=== PATIENT | male | born 1960 | race Caucasian/White ===

== ENCOUNTER 2020-07-27 11:13 | Inpatient (IN) ==
[2020-07-27] MEDS ORDERED: PANTOprazole 80 MG in DEXTROSE 5% 100 ML IV ONE (11:58)
[2020-07-27] MEDS ORDERED: PANTOPRAZOLE BOLUS/DRIP 1 EA IV STA (11:58)
[2020-07-27] MEDS ORDERED: PANTOprazole 40 MG in DEXTROSE 5% 100 ML IV SCH (12:13)
[2020-07-27] MEDS ORDERED: ONDANSETRON INJ 2 MG/ML 2 ML VIAL IV STA (12:26)
[2020-07-27 12:37] LABS: Basophils # (auto) 0.01 K/uL (0-0.2); Basophils % (auto) 0.1 %; Eosinophils # (auto) 0.02 K/uL (0-0.5); Eosinophils % (auto) 0.2 %; Hematocrit (blood only) 42.3 % (42-52); Hemoglobin 14.1 g/dL (14.0-18.0); Immature Granulocytes # (auto) 0.04 K/uL (0.00-0.02); Immature Granulocytes % (auto) 0.4 %; Lymphocytes # (auto) 1.22 K/uL (1.2-3.4); Lymphocytes % (auto) 11.7 %; Mean Corpuscular Hgb Conc 33.3 g/dL (32-36); Mean Platelet Volume 9.9 fL (7.4-10.4); Monocytes # (auto) 0.73 K/uL (0.11-0.59); Neutrophils # (auto) 8.45 K/uL (1.4-6.5); Neutrophils % (auto) 80.6 %; Platelet Count 229 K/uL (130-400); RDW Coefficient of Variation 15.6 % (11.5-14.5); RDW Standard Deviation 51.4 fL (36.4-46.3); White Blood Count 10.47 K/uL (4.8-10.8)
[2020-07-27 12:51] LABS: INR 1.1 (0.9-1.1); Partial Thromboplastin Ratio 0.9; Partial Thromboplastin Time 24.4 Seconds (21.0-31.0); Prothrombin Time 11.6 Seconds (9.0-12.0)
[2020-07-27 12:57] LABS: Alanine Aminotransferase 31 U/L (12-78); Albumin Level 3.1 gm/dl (3.4-5.0); Aspartate Aminotransferase 19 U/L (15-37); BUN Creatinine Ratio 38.9 (10-20); Blood Urea Nitrogen 33 mg/dl (7-18); Carbon Dioxide 27 mmol/L (21-32); Chloride 105 mmol/L (98-107); Glucose 103 mg/dl (70-99); Potassium 3.8 mmol/L (3.5-5.1); Sodium 137 mmol/L (136-145)
[2020-07-27 12:59] LABS: Albumin Globulin Ratio 0.7 (0.9-2); Alkaline Phosphatase 71 U/L (45-117); Bilirubin,Total 1.1 mg/dl (0.2-1); Globulin 4.7 gm/dl (2.5-4.0); Total Protein 7.8 gm/dl (6.4-8.2)
--- NOTE | 2020-07-27 13:41 | Emergency Department Note ---
History of Present Illness General Chief complaint: GI Bleed Stated complaint: GI Bleeding Time Seen by Provider: 07/27/20 11:33 Source: patient, EMS, RN notes reviewed and old records reviewed Mode of arrival: EMS Limitations: physical limitation History of Present Illness Provider complaint: Hematemesis Onset (ago): hour(s) 1 Location: mouth Current Pain Intensity: 0 Relieved By: + none Exacerbated By: + movement Associated symptoms: + denies other symptoms; no chest pain and no fever/chills Treatments prior to arrival: none This 59-year-old male who has a history of traumatic brain injury who presents to the emergency department over concerns that the patient is vomiting blood today. The patient does have blood on his russell. The patient was vomiting coffee-ground emesis apparently prior to arrival. Per EMS the patient is at his baseline neurologically. Home Medications Home Medications Medication Instructions Recorded Confirmed Type acetaminophen 325 mg capsule 650 mg PO Q4H PRN #60 cap 04/02/20 07/27/20 Rx aluminum-mag hydroxide-simethicone 10 ml PO QID PRN #3000 ml 04/02/20 07/27/20 Rx 200 mg-200 mg-20 mg/5 mL oral susp calcium carbonate 500 mg calcium 500 mg PO QAM 04/02/20 07/27/20 History (1,250 mg) tablet docusate sodium 100 mg capsule 100 mg PO BID #60 cap 04/02/20 07/27/20 Rx ferrous sulfate 325 mg (65 mg 325 mg PO BID #60 tab 04/02/20 07/27/20 Rx iron) tablet fluticasone 100 mcg-salmeterol 50 1 puffs INH BID #60 ea 04/02/20 07/27/20 Rx mcg/dose blistr powdr for inhalation Wheelchair (Manual or Powered) #1 ea 04/04/20 07/24/20 Rx ammonium lactate 12 % topical cream 1 appln TOP BID #140 gm 04/20/20 07/27/20 Rx pantoprazole 40 mg tablet,delayed 40 mg PO QAM 07/18/20 07/27/20 History release guaifenesin [Mucus Relief ER] 600 mg PO BID 07/24/20 07/27/20 History quetiapine [Seroquel] 50 mg PO HS 07/24/20 07/27/20 History quetiapine [Seroquel] 100 mg PO QAM 07/24/20 07/27/20 History tamsulosin [Flomax] 0.4 mg PO BID 07/24/20 07/27/20 History cetirizine [Zyrtec] 10 mg PO QAM 07/27/20 07/27/20 History finasteride [Proscar] 5 mg PO QAM 07/27/20 07/27/20 History fluticasone propionate [Allergy 1 sprays INTNAS QAM 07/27/20 07/27/20 History Relief (fluticasone)] gabapentin 300 mg PO BID 07/27/20 07/27/20 History ipratropium-albuterol [Combivent 1 puff INHALATION QID 07/27/20 07/27/20 History Respimat] montelukast 10 mg PO QAM 07/27/20 07/27/20 History [id number] K-lycop 1 tab PO QAM 07/27/20 07/27/20 History [One-A-Day Men's Multivitamin] omeprazole 40 mg PO DAILY@1600 07/27/20 07/27/20 History Allergies Allergy/AdvReac Type Severity Reaction Status Date / Time mupirocin [From Bactroban] Allergy Verified 07/27/20 14:42 Past Med/Surg History Medical History Arthritis Aspiration pneumonia Aspiration pneumonitis Bilateral lower extremity edema BPH (benign prostatic hyperplasia) BPH with obstruction/lower urinary tract symptoms Chronic cough Chronic pulmonary aspiration Chronic pulmonary aspiration Critical illness myopathy Depression Engages in vaping Expressive aphasia FH: total knee replacement 2016 Hernia, hiatal History of drug abuse History of tobacco abuse Impulsive personality disorder Iron deficiency anemia Morbid obesity due to excess calories MRSA infection Neuropathy PSVT (paroxysmal supraventricular tachycardia) Pulmonary fibrosis TBI (traumatic brain injury) Surgical History H/O total knee replacement History of bursectomy Right elbow History of surgical procedure ankle fracture treatment Family History Father Heart disease Denies family history of Ovarian cancer Prostate cancer Diabetes Myocardial infarction Breast cancer Colorectal cancer Hypertension Social History Smoking Status: Former smoker Number of Years Since Quit: 34; Second Hand Exposure: No; Hx Alcohol Use: No Hx Substance Use: No Preferred Language: Yakut Communication Ability: Impaired Peripheral Edp Equipment Operator Required: No Beliefs That Will Affect Care: None marital status: Current Living Situation: Personal Care Facility Current Living Situation Comment: [facility] current occupational status: disabled Other Information That Helps Us Care for You: No Feels Safe at Home: Yes Safety Concerns: Feels Safe At This Time caffeine: Yes (coffee ) Dental Care, Regularly: Yes Physical Activity Frequency: 3-4 Times per Week Seatbelt Use: sometimes Sunscreen Use: No Assistive Devices: Glasses, Walker and Wheelchair Physical Exam Vital Signs Vital Signs - 24 hr 07/27/20 11:19 Temperature 37.2 C Temperature Source Oral Pulse Rate 86 Pulse Rhythm Regular Pulse Strength Normal Respiratory Rate 20 Respiratory Effort / Characteristics Non-Labored Spontaneous Respiratory Depth Normal Respiratory Pattern Regular Blood Pressure 120/80 Blood Pressure Mean 93 Pulse Oximetry 98 Oxygen Delivery Method Room Air Sepsis Recent Fever Within 48 Hours No Sepsis New/Unexplained Change in Mental Status N/A Sepsis Action Taken by Nursing No Action Required VITAL SIGNS - Vital signs and nursing notes were reviewed. GENERAL - 59-year-old male appearing stated age who is in no acute distress. SKIN - Without rashes. HEAD - NC/AT. EYES - PERRL with EOMI bilaterally. Sclera anicteric. Palpebral conjunctiva pink and moist with no injection noted. EARS - No deformities of external structures noted on gross examination bilaterally. No pain elicited with palpation of the tragus bilaterally. External auditory canals without discharge or otorrhea. Tympanic membranes pearly hebert without retraction or bulging. No fluid or purulent material visualized behind the TM. Handle of malleus, umbo, cone of light, pars tensa/flaccid all easily visualized. NOSE - Midline and without cyanosis. No epistaxis or purulent drainage noted. Septum midline without deviation or septal hematoma noted. MOUTH/OROPHARYNX - Without perioral cyanosis. Buccal mucosa pink and moist and without leukoplakia. Tongue midline with equal elevation of palate bilaterally. No tonsillar hypertrophy, erythema, or exudates noted. dentition noted. NECK - Neck with FROM. Supple to palpation. lymphadenopathy noted. No nuchal rigidity. LUNGS - Chest wall symmetric without accessory muscle use, intercostals retr actions, or central cyanosis. Normal vesicular breath sounds CTA B/L. No wheezes, rales, or rhonchi appreciated. CARDIAC - RRR with S1/S2. No murmur, rubs, or gallops appreciated. ABDOMEN - Abdominal contour without pulsations or visible masses. BS normoactive all four quadrants. No tenderness, palpable masses, hepatosplenomegaly, or ascites noted. EXTREMITIES - No clubbing or peripheral cyanosis. No pretibial edema present. +3/5 radial, posterior tibial, and dorsalis pedis pulses palpated throughout. +5/5 strength noted in UE/LE bilaterally. NEUROLOGIC - Cranial nerves II through XII grossly intact. Sensory intact to light touch throughout. Patellar reflexes +2/4. Course Administered Medications Albuterol (Albuterol Hfa 8 Gm Inhaler) 1 puffs INH QIDR [facility] Stop: 08/26/20 18:59 Last Admin: 07/28/20 11:42 Dose: 1 puffs Documented by: [id number] Admin: 07/28/20 07:40 Dose: 1 puffs Documented by: [id number] Admin: 07/28/20 01:10 Dose: Not Given Documented by: [id number] Calcium Carbonate (Calcium Carbonate 1250mg Tab) 1,250 mg PO QAM [facility] Stop: 08/27/20 08:59 Last Admin: 07/28/20 09:41 Dose: 1,250 mg Documented by: [id number] Cetirizine HCl (Cetirizine Hcl 10 Mg Tablet) 10 mg PO QAM [facility] Stop: 08/27/20 08:59 Last Admin: 07/28/20 09:44 Dose: 10 mg Documented by: [id number] Docusate Sodium (Docusate Sodium 100 Mg Cap) 100 mg PO BID [facility] Stop: 08/27/20 08:59 Last Admin: 07/28/20 09:44 Dose: 100 mg Documented by: [id number] Ferrous Sulfate (Ferrous Sulfate 325 Mg Tab) 325 mg PO BID [facility] Stop: 08/27/20 08:59 Last Admin: 07/28/20 09:45 Dose: 325 mg Documented by: [id number] Finasteride (Finasteride 5 Mg Tab) 5 mg PO QAM [facility] Stop: 08/27/20 08:59 Last Admin: 07/28/20 09:45 Dose: 5 mg Documented by: [id number] Fluticasone Propionate (Fluticasone Propionate Na Spr 16 Gm Btl) 1 sprays NA QAM [facility] Stop: 08/27/20 08:59 Last Admin: 07/28/20 09:45 Dose: 1 sprays Documented by: [id number] Fluticasone/Vilanterol (Fluticasone/Vilanterol 100/25mcg 14 Puffs/Inhaler) 1 puffs INH DAILY [facility]; Protocol Stop: 08/27/20 08:59 Last Admin: 07/28/20 07:50 Dose: 1 puffs Documented by: [id number] Gabapentin (Gabapentin 300 Mg Cap) 300 mg PO BID [facility] Stop: 08/27/20 08:59 Last Admin: 07/28/20 09:42 Dose: 300 mg Documented by: [id number] Guaifenesin (Guaifenesin 600 Mg Tabcr) 600 mg PO BID [facility] Stop: 08/27/20 08:59 Last Admin: 07/28/20 09:42 Dose: 600 mg Documented by: [id number] Pantoprazole Sodium 40 mg/ (Dextrose) 100 mls @ 20 mls/hr IV Q5H [facility] Stop: 08/26/20 18:29 Last Admin: 07/28/20 08:40 Dose: 8 mg/hr, 20 mls/hr Documented by: [id number] Infusion: 07/28/20 08:40 Dose: 8 mg/hr, 20 mls/hr Documented by: [id number] Admin: 07/28/20 04:03 Dose: 8 mg/hr, 20 mls/hr Documented by: [id number] Infusion: 07/28/20 04:00 Dose: 8 mg/hr, 20 mls/hr Documented by: [id number] Admin: 07/27/20 23:00 Dose: 8 mg/hr, 20 mls/hr Documented by: [id number] Infusion: 07/27/20 23:00 Dose: 8 mg/hr, 20 mls/hr Documented by: [id number] Admin: 07/27/20 18:33 Dose: 8 mg/hr, 20 mls/hr Documented by: [id number] Potassium Chloride/Sodium Chloride (Normal Saline W/20 Meq Kcl) 20 meq in 1,000 mls @ 100 mls/hr IV .Q10H [facility] Stop: 08/26/20 17:14 Last Admin: 07/28/20 13:32 Dose: 100 mls/hr Documented by: [id number] Infusion: 07/28/20 13:32 Dose: 100 mls/hr Documented by: [id number] Admin: 07/28/20 04:03 Dose: 100 mls/hr Documented by: [id number] Infusion: 07/28/20 03:48 Dose: 100 mls/hr Documented by: [id number] Admin: 07/27/20 17:48 Dose: 100 mls/hr Documented by: [id number] Levofloxacin/Dextrose (Levaquin/D5w) 750 mg in 150 mls @ 100 mls/hr IV Q24H [facility] Stop: 08/04/20 07:59 Last Infusion: 07/28/20 09:46 Dose: 0 mls/hr Documented by: [id number] Admin: 07/28/20 07:49 Dose: 100 mls/hr Documented by: [id number] Ipratropium [place] (Ipratropium [place] Hfa Inhaler) 1 puffs INH QIDR [facility] Stop: 08/26/20 18:59 Last Admin: 07/28/20 11:43 Dose: 1 puffs Documented by: [id number] Admin: 07/28/20 07:39 Dose: 1 puffs Documented by: [id number] Admin: 07/28/20 01:10 Dose: Not Given Documented by: [id number] Lactic Acid (Ammonium Lactate 12% Lotion 225 Gm Btl) 1 gm EXT BID [facility] Stop: 08/27/20 08:59 Last Admin: 07/28/20 09:45 Dose: 1 gm Documented by: [id number] Montelukast Sodium (Montelukast Sodium 10 Mg Tablet) 10 mg PO QAM [facility] Stop: 08/27/20 08:59 Last Admin: 07/28/20 09:43 Dose: 10 mg Documented by: [id number] Multivitamins (Multivitamin Tab) 1 tab PO QAM [facility] Stop: 08/27/20 08:59 Last Admin: 07/28/20 09:43 Dose: 1 tab Documented by: [id number] Quetiapine Fumarate (Quetiapine Fumarate 100 Mg Tablet) 100 mg PO QAM [facility] Stop: 08/27/20 08:59 Last Admin: 07/28/20 09:44 Dose: 100 mg Documented by: [id number] Tamsulosin HCl (Tamsulosin Hcl 0.4 Mg Cap) 0.4 mg PO BID [facility] Stop: 08/27/20 08:59 Last Admin: 07/28/20 09:44 Dose: 0.4 mg Documented by: [id number] Discontinued Medications Pantoprazole Sodium (Protonix Bolus/Drip) 0 mls @ 1 mls/hr IV ONE STA Stop: 07/27/20 11:59 Last Infusion: 07/27/20 17:05 Dose: 0 mls/hr Documented by: [id number] Admin: 07/27/20 13:07 Dose: 1 mls/hr Documented by: [id number] Pantoprazole Sodium 40 mg/ (Dextrose) 100 mls @ 20 mls/hr IV Q5H [facility] Stop: 08/26/20 12:12 Last Infusion: 07/27/20 16:59 Dose: 0 mg/hr, 0 mls/hr Documented by: [id number] Admin: 07/27/20 13:33 Dose: 8 mg/hr, 20 mls/hr Documented by: [id number] Pantoprazole Sodium 80 mg/ (Dextrose) 120 mls @ 400 mls/hr IV NOW ONE Stop: 07/27/20 12:15 Last Infusion: 07/27/20 13:08 Dose: 0 mls/hr Documented by: [id number] Admin: 07/27/20 12:48 Dose: 400 mls/hr Documented by: [id number] Chlorpromazine HCl 25 mg/ (Syringe) 1 mls @ 6 mls/min IM ONE ONE Stop: 07/27/20 15:01 Last Admin: 07/27/20 15:24 Dose: 6 mls/min Documented by: [id number] Levofloxacin/Dextrose (Levaquin/D5w) 750 mg in 150 mls @ 100 mls/hr IV ONE ONE Stop: 07/27/20 19:44 Last Infusion: 07/27/20 22:40 Dose: 0 mls/hr Documented by: [id number] Admin: 07/27/20 21:05 Dose: 100 mls/hr Documented by: [id number] Influenza Virus Vaccine Quadrival (Influenza Virus Quad Vaccine 0.5 Ml Syr) 0.5 ml IM .ONCE ONE Stop: 07/27/20 18:31 Last Admin: 07/28/20 10:21 Dose: 0.5 ml Documented by: [id number] Ondansetron HCl (Ondansetron Inj 2 Mg/Ml 2 Ml Vial) 4 mg IV NOW STA Stop: 07/27/20 12:27 Last Admin: 07/27/20 13:33 Dose: 4 mg Documented by: [id number] Medical Decision Making Differential Diagnosis Diverticulosis, AVM, coagulopathy, colitis, inflammatory bowel disease, malignancy, Tangela-Ramos tear, esophagitis, peptic ulcer disease, variceal bleed, gastritis, epistaxis, fissure, hemorrhoids, as well as other pathologies. Medical Records Attestation: I reviewed the patient's medical records. Home Medications Current Medication List: was personally reviewed by me Laboratory Data Attestation: I reviewed the patient's lab results. Result diagrams: 07/28/20 08:56 07/28/20 08:56 Lab Results 07/27/20 07/27/20 07/27/20 Range/Units 11:36 11:36 11:36 WBC 10.47 (4.8-10.8) K/uL RBC 4.70 (4.7-6.1) M/uL Hgb 14.1 (14.0-18.0) g/dL Hct 42.3 (42-52) % MCV 90.0 (80-100) fL MCH 30.0 (25-34) pg MCHC 33.3 (32-36) g/dL RDW Std Deviation 51.4 H (36.4-46.3) fL RDW Coeff of Hillary 15.6 H (11.5-14.5) % Plt Count 229 (130-400) K/uL MPV 9.9 (7.4-10.4) fL Immature Gran % (Auto) 0.4 % Neut % (Auto) 80.6 % Lymph % (Auto) 11.7 % [place] % (Auto) 7.0 % Eos % (Auto) 0.2 % Baso % (Auto) 0.1 % Neut # (Auto) 8.45 H (1.4-6.5) K/uL Lymph # (Auto) 1.22 (1.2-3.4) K/uL [place] # (Auto) 0.73 H (0.11-0.59) K/uL Eos # (Auto) 0.02 (0-0.5) K/uL Baso # (Auto) 0.01 (0-0.2) K/uL Immature Gran # (Auto) 0.04 H (0.00-0.02) K/uL PT 11.6 (9.0-12.0) Seconds INR 1.1 (0.9-1.1) APTT 24.4 (21.0-31.0) Seconds PTT Ratio 0.9 Sodium (136-145) mmol/L Potassium (3.5-5.1) mmol/L Chloride (98-107) mmol/L Carbon Dioxide (21-32) mmol/L Anion Gap (3-11) BUN (7-18) mg/dl Creatinine (0.6-1.4) mg/dl Est Cr Clr Drug Dosing Est GFR ( Amer) Est GFR (Non-Af Amer) BUN/Creatinine Ratio (10-20) Glucose (70-99) mg/dl Calcium (8.5-10.1) mg/dl Total Bilirubin (0.2-1) mg/dl AST (15-37) U/L ALT (12-78) U/L Alkaline Phosphatase (45-117) U/L Total Protein (6.4-8.2) gm/dl Albumin (3.4-5.0) gm/dl Globulin (2.5-4.0) gm/dl Albumin/Globulin Ratio (0.9-2) Blood Type A Negative Antibody Screen NEGATIVE 07/27/20 Range/Units 11:36 WBC (4.8-10.8) K/uL RBC (4.7-6.1) M/uL Hgb (14.0-18.0) g/dL Hct (42-52) % MCV (80-100) fL MCH (25-34) pg MCHC (32-36) g/dL RDW Std Deviation (36.4-46.3) fL RDW Coeff of Hillary (11.5-14.5) % Plt Count (130-400) K/uL MPV (7.4-10.4) fL Immature Gran % (Auto) % Neut % (Auto) % Lymph % (Auto) % [place] % (Auto) % Eos % (Auto) % Baso % (Auto) % Neut # (Auto) (1.4-6.5) K/uL Lymph # (Auto) (1.2-3.4) K/uL [place] # (Auto) (0.11-0.59) K/uL Eos # (Auto) (0-0.5) K/uL Baso # (Auto) (0-0.2) K/uL Immature Gran # (Auto) (0.00-0.02) K/uL PT (9.0-12.0) Seconds INR (0.9-1.1) APTT (21.0-31.0) Seconds PTT Ratio Sodium 137 (136-145) mmol/L Potassium 3.8 (3.5-5.1) mmol/L Chloride 105 (98-107) mmol/L Carbon Dioxide 27 (21-32) mmol/L Anion Gap 5.0 (3-11) BUN 33 H (7-18) mg/dl Creatinine 0.85 (0.6-1.4) mg/dl Est Cr Clr Drug Dosing Not Reportable Est GFR ( Amer) 109.0 Est GFR (Non-Af Amer) 94.0 BUN/Creatinine Ratio 38.9 H (10-20) Glucose 103 H (70-99) mg/dl Calcium 9.0 (8.5-10.1) mg/dl Total Bilirubin 1.1 H (0.2-1) mg/dl AST 19 (15-37) U/L ALT 31 (12-78) U/L Alkaline Phosphatase 71 (45-117) U/L Total Protein 7.8 (6.4-8.2) gm/dl Albumin 3.1 L (3.4-5.0) gm/dl Globulin 4.7 H (2.5-4.0) gm/dl Albumin/Globulin Ratio 0.7 L (0.9-2) Blood Type Antibody Screen MDM Narrative Patient was seen and evaluated as above in room B12. Review was performed of nursing notes and vital signs. I did review pertinent previous visits and patient history. After obtaining a thorough history and physical examination the above work up was performed. This 59-year-old male presents emergency department complaining of vomiting with what appears to be blood. Patient does appear to have blood on his russell. For this reason he was started on GI Protonix bolus and drip. I did discuss the case with the hospitalist service who did agree to admit the patient. Patient's hemoglobin here is stable. An order was placed for continuous cardiac monitoring. The monitor shows a rate of 81 with Normal Sinus rhythm. The patient was evaluated during the global COVID-19 pandemic, and that diagnosis was suspected/considered upon their initial presentation. Their evaluation, treatment and testing was consistent with current guidelines for patients who present with complaints or symptoms that may be related to COVID- 19. Impression & Plan GI bleed Discharge Plan Visit Data Chief Complaint: GI Bleed Stated Complaint: GI Bleeding ED Provider: Jessee Barfield Discharge Problem: GI bleed Patient Disposition: Admitted As Inpatient Discharge Instructions Interventions: ED Discharge Assessment Last Done: 07/27/20 16:00 Discharge Problem: GI bleed Qualifiers: GI bleed type/associated pathology: unspecified gastrointestinal hemorrhage type Qualified Code(s): K92.2 - Gastrointestinal hemorrhage, unspecified
[2020-07-27] MEDS ORDERED: chlorproMAZINE HCL 25 MG/ML AMP IM ONE (14:40)
--- NOTE | 2020-07-27 14:54 | Electrocardiogram Report ---
Test Reason : Blood Pressure : / mmHG Vent. Rate : 085 BPM Atrial Rate : 085 BPM P-R Int : 144 ms QRS Dur : 112 ms QT Int : 374 ms P-R-T Axes : 059 060 053 degrees QTc Int : 445 ms Normal sinus rhythm Normal ECG When compared with ECG of 23-JUL-2020 20:37, No significant change was found Confirmed by Brian Ortiz ([id number]) on 07/27/2020 2:54:00 PM Referred By: REFERRED SELF Confirmed By:Brian Ortiz
--- NOTE | 2020-07-27 14:56 | History & Physical Report ---
Date of Service July 27, 2020 Assessment & Plan (1) GI bleed: Admit med tele VSS, mild tachycardia, Hgb is wnl, benign abdominal exam Continue protonix gtt started in the ED Consult GI (2) Impulsive personality disorder: Calm at present, will need to monitor, place on one to one observation if necessary (3) BPH with obstruction/lower urinary tract symptoms: Hold home finasteride until taking po (4) Depression: Recent suicidal behavior resulting in ED stay but no placement. Holding seroquel until taking po. Monitor for change in mood or impulse to self harm. He did say "I'm not ready to " when I asked about code status. May need to be made a one to one if behavior becomes more agitated. (5) Pulmonary fibrosis: Continue home inhalers (6) DVT prophylaxis: SCDs, hold chemoprophylaxis for GI bleed History of Present Illness Mr. Gaviria presents with coffee ground emesis. He is a resident at [facility]. He is very difficult to understand due to baseline dysarthria and dysphasia secondary to history of traumatic brain injury though he does answer questions appropriately as best that I can understand him. History obtained from patient and on duty nurse at [facility]. Patient began vomiting last night with noted blood in his russell this morning. He was more somnolent than usual for him this morning. He was not running any fevers, no aches chills, cough, sob, chest pain, lightheadedness, diarrhea, abdominal pain, dysuria, or rash. Of note, patient wasin the ED overnight the due to suicide attempt by riding his bike into traffic. He was made a 302 but placement was unable to be found and he was sent back to [facility]. I did ask the nurse on staff if she though there was any possibility of the patient ingesting medications or anything else but she was not suspicious for that and said that he does not have access to his medications. Pmhx: TBI, dysarthria, dysphagia, BPH, COPD, GERD, pulmonary fibrosis, anemia, impulsive personality disorder Social: apparently no contact with his family, former smoker, no alcohol Family: non contributory Primary Care Provider: NO PCP Allergies Allergy/AdvReac Type Severity Reaction Status Date / Time mupirocin [From Bactroban] Allergy Verified 07/27/20 14:42 Home Medications Home Medications Medication Instructions Recorded Confirmed Type acetaminophen 325 mg capsule 650 mg PO Q4H PRN #60 cap 04/02/20 07/27/20 Rx aluminum-mag hydroxide-simethicone 10 ml PO QID PRN #3000 ml 04/02/20 07/27/20 Rx 200 mg-200 mg-20 mg/5 mL oral susp calcium carbonate 500 mg calcium 500 mg PO QAM 04/02/20 07/27/20 History (1,250 mg) tablet docusate sodium 100 mg capsule 100 mg PO BID #60 cap 04/02/20 07/27/20 Rx ferrous sulfate 325 mg (65 mg 325 mg PO BID #60 tab 04/02/20 07/27/20 Rx iron) tablet fluticasone 100 mcg-salmeterol 50 1 puffs INH BID #60 ea 04/02/20 07/27/20 Rx mcg/dose blistr powdr for inhalation Wheelchair (Manual or Powered) #1 ea 04/04/20 07/24/20 Rx ammonium lactate 12 % topical cream 1 appln TOP BID #140 gm 04/20/20 07/27/20 Rx pantoprazole 40 mg tablet,delayed 40 mg PO QAM 07/18/20 07/27/20 History release guaifenesin [Mucus Relief ER] 600 mg PO BID 07/24/20 07/27/20 History quetiapine [Seroquel] 50 mg PO HS 07/24/20 07/27/20 History quetiapine [Seroquel] 100 mg PO QAM 07/24/20 07/27/20 History tamsulosin [Flomax] 0.4 mg PO BID 07/24/20 07/27/20 History cetirizine [Zyrtec] 10 mg PO QAM 07/27/20 07/27/20 History finasteride [Proscar] 5 mg PO QAM 07/27/20 07/27/20 History fluticasone propionate [Allergy 1 sprays INTNAS QAM 07/27/20 07/27/20 History Relief (fluticasone)] gabapentin 300 mg PO BID 07/27/20 07/27/20 History ipratropium-albuterol [Combivent 1 puff INHALATION QID 07/27/20 07/27/20 History Respimat] montelukast 10 mg PO QAM 07/27/20 07/27/20 History souzxonh-skm-slsmu-vit K-lycop 1 tab PO QAM 07/27/20 07/27/20 History [One-A-Day Men's Multivitamin] omeprazole 40 mg PO DAILY@1600 07/27/20 07/27/20 History Past Med/Surg History Medical History (Updated 07/27/20 @ 15:45 by JEFF Huffman) Arthritis Aspiration pneumonia Aspiration pneumonitis Bilateral lower extremity edema BPH (benign prostatic hyperplasia) BPH with obstruction/lower urinary tract symptoms Chronic cough Chronic pulmonary aspiration Chronic pulmonary aspiration Critical illness myopathy Depression Engages in vaping Expressive aphasia FH: total knee replacement 2016 Hernia, hiatal History of drug abuse History of tobacco abuse Impulsive personality disorder Iron deficiency anemia Morbid obesity due to excess calories MRSA infection Neuropathy PSVT (paroxysmal supraventricular tachycardia) Pulmonary fibrosis TBI (traumatic brain injury) Surgical History (System 07/23/20 @ 20:28 by Daxa Hubbard) H/O total knee replacement History of bursectomy Right elbow History of surgical procedure ankle fracture treatment Family History (System 07/23/20 @ 20:28 by Daxa Hubbard) Father Heart disease Denies family history of Ovarian cancer Prostate cancer Diabetes Myocardial infarction Breast cancer Colorectal cancer Hypertension Social History (System 07/23/20 @ 20:28 by Daxa Hubbard) Smoking Status: Former smoker Number of Years Since Quit: 34; Second Hand Exposure: No; Hx Alcohol Use: No Hx Substance Use: No Preferred Language: Malay Communication Ability: Impaired 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 Beliefs That Will Affect Care: None marital status: Current Living Situation: Personal Care Facility Current Living Situation Comment: [facility] current occupational status: disabled Other Information That Helps Us Care for You: No Feels Safe at Home: Yes Safety Concerns: Feels Safe At This Time caffeine: Yes (coffee ) Dental Care, Regularly: Yes Physical Activity Frequency: 3-4 Times per Week Seatbelt Use: sometimes Sunscreen Use: No Assistive Devices: Glasses, Walker and Wheelchair Review of Systems Review of Systems: All systems reviewed & are unremarkable except as noted in HPI & below Physical Exam Physical Exam: General: no distress Eyes: normal inspection, PERLL Respiratory: chest non tender, clear to auscultation, normal breath sounds, no respiratory distress, no accessory muscle use Cardiac: regular rate and rhythm, no rub or gallop, no murmur, no edema, no jvd GI/: active bowel sounds, no abd pain or tenderness, soft, non distended Extremities: normal range of motion, normal strength, non tender Neuro/Psych: alert and oriented x 3, normal mood and affect Skin: normal color, dry Results & Data Results & Data ([facility]) Vital Signs (Past 12 Hours) Vital Signs Temp Pulse Resp BP Pulse Ox 07/27/20 14:01 105 H 17 120/72 07/27/20 14:00 103 H 22 07/27/20 13:31 103 H 15 07/27/20 13:30 100 H 15 128/90 07/27/20 13:01 91 H 14 116/57 L 07/27/20 13:00 94 H 17 07/27/20 12:31 84 16 07/27/20 12:30 85 16 133/69 07/27/20 12:01 84 20 07/27/20 12:00 89 22 127/69 07/27/20 11:31 86 17 96 07/27/20 11:30 85 16 143/75 H 95 07/27/20 11:22 87 17 94 07/27/20 11:19 37.2 C 86 20 120/80 98 07/27/20 11:18 87 17 120/80 93 Code Status & VTE Plan VTE Prophylaxis Plan VTE Prophylaxis will be ordered: Yes Supervising Physician Co-Signing Physician Notes Patient seen and examined with Jenny AGUILAR. I agree with her exam findings, review of systems, assessment and plan. I personally reviewed the lab work and imaging as well. patient with vomiting at personal snf, might have been hematemesis but he is not a good historian has rhonchi on exam CT of the abdomen/pelvis with right lower lobe pneumonia, likely aspiration from vomiting just last week he had a suicide attempt, was made 302 but could not get into inpatient psychiatry - Right lower lobe pneumonia, treat with Levaquin, no hypoxia at this time - Vomiting, possible hematemesis Hb is stable, make NPO, consult GI, protonix IV - Recent suicidal ideation, unsure if he is better, difficult to communicate will place on one to one PG Care Time/CCT Total # of Minutes Spent Total Time Spent with Patient: Total time spent is greater than 50% in coordination of care (as documented) at patient's floor/unit and/or counseling patient: Coding Level of Care Code 67411 Initial Inpt Care Lvl 3 Diagnoses GI bleed K92.2 Impulsive personality disorder F60.3 BPH with obstruction/lower urinary tract symptoms N40.1; N13.8 Depression F32.9 Pulmonary fibrosis J84.10 DVT prophylaxis Z29.9
[2020-07-27] MEDS ORDERED: CHLORPROMAZINE HCL IM ONE (15:00)
[2020-07-27] MEDS ORDERED: ONDANSETRON INJ 2 MG/ML 2 ML VIAL IV PRN (16:57)
[2020-07-27] MEDS ORDERED: IPRATROPIUM BROMIDE/ALBUTEROL respimat INH INH SCH (17:00)
[2020-07-27] MEDS: NSS + 20MEQ KCL 20 MEQ/1,000 ML BAG IV SCH (17:48)
--- NOTE | 2020-07-27 18:02 | CT Scan Report ---
CT SCAN OF THE ABDOMEN AND PELVIS WITHOUT IV CONTRAST CLINICAL HISTORY: GI bleeding. COMPARISON STUDY: No priors. TECHNIQUE: CT scan of the abdomen and pelvis is performed from the lung bases to the proximal femora. Images are reviewed in the axial, sagittal, and coronal planes. IV contrast was not administered for this examination as per the referring clinician. Note that the examination was performed in signific antly suboptimal fashion without oral and IV contrast. A dose lowering technique was utilized adherin g to the principles of ALARA. There is motion artifact, as well as streak artifact from the arms whic h could not be elevated above the abdomen. CT DOSE: 1581.73 mGy.cm FINDINGS: Lung bases: The heart is normal in size and without pericardial effusion. There are coronary artery c alcifications. A moderate hiatal hernia is observed. There is bibasilar airspace consolidation, right greater than left. No pleural effusion is identified. Liver: The unenhanced liver is normal in size, contour, and attenuation. There is no intrahepatic veronica iary ductal dilatation. Gallbladder: Unremarkable. Spleen: Normal in size and attenuation. Pancreas: The unenhanced pancreas is moderately atrophic and grossly unremarkable. Adrenal glands: Unremarkable. Kidneys: The unenhanced kidneys demonstrate mild cortical atrophy and are without hydronephrosis. The re are no renal calculi identified. There is no evidence of contour deforming renal mass lesion. Abdominal vasculature: The abdominal aorta is normal in course and caliber noting mild atheroscleroti c calcification. Bowel: There is no bowel obstruction. A segment of the sigmoid colon is contained within a left ingui nal hernia. There are scattered colonic diverticula without CT evidence of acute diverticulitis. Mode rate fecal retention is noted throughout the colon. The appendix is well-visualized and normal. Peritoneum: There is no intraperitoneal free air or abdominal ascites. Lymphadenopathy: None. Pelvic viscera: The prostate gland is mildly enlarged and heterogeneous. The bladder is normal as vis ualized. There are bilateral fat-containing hernias. The left inguinal hernia contains a small nonobs tructed segment of colon. There is asymmetric atrophy of the left iliopsoas musculature as compared t o the right. Skeletal structures: The skeletal structures are osteopenic. Moderate lumbosacral spondylosis is obse rved. No lytic or blastic lesions are seen. There is chronic posttraumatic deformity of the left elizabeth c wing and the left proximal femur. IMPRESSION: 1. Suboptimal examination without oral and IV contrast. The Examination is also compromised by streak and motion artifact. 2. There is bibasilar airspace consolidation, right greater than left. The appearance is typical for pneumonia. Clinical correlation will be required and radiographic follow-up to resolution is recommen ded. 3. There are no acute infectious or inflammatory findings in the abdomen or pelvis. 4. There are bilateral inguinal hernias. The left inguinal hernia contains a small nonobstructed segm ent of the sigmoid colon. 5. Moderate colonic fecal retention. 6. Hiatal hernia. 7. Additional findings as above. ACT 112: Negative or not required by law. Electronically signed by: Chriss Edward M.D. 07/27/2020 6:01 PM
[2020-07-27] MEDS ORDERED: INFLUENZA ADMINISTRATION CHARGE ONE (18:14)
[2020-07-27] MEDS ORDERED: levoFLOXacin/D5W 750 MG/150 ML BAG IV ONE (18:15)
[2020-07-27] MEDS ORDERED: INFLUENZA VIRUS QUAD VACCINE 0.5 ML SYR IM ONE (18:30)
[2020-07-27] MEDS: PANTOprazole 40 MG in DEXTROSE 5% 100 ML IV SCH ×2 (18:33→23:00)
[2020-07-28] MEDS: ALBUTEROL HFA 8 GM INHALER INH SCH ×5 (01:10→19:10)
[2020-07-28] MEDS: IPRATROPIUM BROMIDE HFA INHALER INH SCH ×5 (01:10→19:09)
[2020-07-28] MEDS: PANTOprazole 40 MG in DEXTROSE 5% 100 ML IV SCH ×2 (04:03→08:40)
[2020-07-28] MEDS: NSS + 20MEQ KCL 20 MEQ/1,000 ML BAG IV SCH ×2 (04:03→13:32)
[2020-07-28] MEDS: levoFLOXacin/D5W 750 MG/150 ML BAG IV SCH (07:49)
[2020-07-28] MEDS: FLUTICASONE/VILANTEROL 100/25MCG 14 PUFFS/INHALER INH SCH (07:50)
[2020-07-28] MEDS ORDERED: ACETAMINOPHEN 325 MG TAB PO PRN (08:10)
[2020-07-28] MEDS ORDERED: ALUMINUM/MAGNESIUM/SIMETH (MAALOX MAX) 30 ML UDC PO PRN (08:10)
[2020-07-28] MEDS ORDERED: IPRATROPIUM BROMIDE/ALBUTEROL respimat INH INH SCH (09:00)
[2020-07-28] MEDS ORDERED: PANTOprazole 40 MG TAB PO SCH (09:00)
[2020-07-28 09:03] LABS: Hematocrit (blood only) 38.1 % (42-52); Hemoglobin 12.4 g/dL (14.0-18.0); Mean Corpuscular Hemoglobin 30.2 pg (25-34); Mean Corpuscular Hgb Conc 32.5 g/dL (32-36); Mean Corpuscular Volume 92.7 fL (80-100); Mean Platelet Volume 9.5 fL (7.4-10.4); Platelet Count 209 K/uL (130-400); RDW Coefficient of Variation 16.1 % (11.5-14.5); RDW Standard Deviation 54.7 fL (36.4-46.3); Red Blood Count 4.11 M/uL (4.7-6.1); White Blood Count 11.54 K/uL (4.8-10.8)
[2020-07-28 09:40] LABS: BUN Creatinine Ratio 23.6 (10-20); Calcium 8.9 mg/dl (8.5-10.1); Creatinine Clr Calc Pharmacy 82.6 ml/min; Est GFR (African American) 76.7; Est GFR (Non-African American) 66.2
[2020-07-28] MEDS: CALCIUM CARBONATE 1250MG TAB PO SCH (09:41)
[2020-07-28] MEDS: guaiFENesin 600 MG TABCR PO SCH ×2 (09:42→21:31)
[2020-07-28] MEDS: GABAPENTIN 300 MG CAP PO SCH ×2 (09:42→21:29)
[2020-07-28] MEDS: MULTIVITAMIN TAB PO SCH (09:43)
[2020-07-28] MEDS: MONTELUKAST SODIUM 10 MG TABLET PO SCH (09:43)
[2020-07-28] MEDS: TAMSULOSIN HCL 0.4 MG CAP PO SCH ×2 (09:44→21:30)
[2020-07-28] MEDS: DOCUSATE SODIUM 100 MG CAP PO SCH ×2 (09:44→21:31)
[2020-07-28] MEDS: QUEtiapine FUMARATE 100 MG TABLET PO SCH (09:44)
[2020-07-28] MEDS: CETIRIZINE HCL 10 MG TABLET PO SCH (09:44)
[2020-07-28] MEDS: FERROUS SULFATE 325 MG TAB PO SCH ×2 (09:45→21:32)
[2020-07-28] MEDS: AMMONIUM LACTATE 12% LOTION 225 GM BTL EXT SCH ×2 (09:45→21:16)
[2020-07-28] MEDS: FINASTERIDE 5 MG TAB PO SCH (09:45)
[2020-07-28] MEDS: FLUTICASONE PROPIONATE NA SPR 16 GM BTL SCH (09:45)
[2020-07-28 09:46] LABS: Potassium 4.1 mmol/L (3.5-5.1)
--- NOTE | 2020-07-28 13:58 | Gastrointestinal Consultation ---
Date of Consultation July 28, 2020 Assessment & Plan (1) GI bleed: Continue Protonix, but decrease to 40 mg IV BID Add Carafate 1 g QID AC and HS With abnormal findings of lungs on CT imaging, and no overt GI bleeding, I would recommend conservative therapy at present. I would not recommend invasive testing unless patient has worsening symptoms If no overt GI bleeding, consider advancing diet tomorrow. (2) Chronic pulmonary aspiration: History of Present Illness Reason for Consultation: GI bleed Attending Physician: Jan Bonilla DO History of Present Illness I was asked to see Mr. Gaviria today in consultation secondary to reported GI bleeding. He has a significant PMHx including a traumatic brain injury, recurrent aspiration pneumonia, and mental health issues, including a recent suicide attempt. [facility], and reportedly had coffee ground emesis yesterday prompting transfer to the ER. At the time of his arrival, he was noted by the ER doctor of having dried blood in his russell. He was subsequently started on Zofran therapy and received a Protonix bolus, followed by a Protonix gtt. He did undergo a CT abd/pelvis and was noted to have bibasilar airspace consolidation right sided greater than left, and was placed on Levaquin therapy. His Hgb has dropped slightly since his admission from 14.1 to 12.4, however, he has not had any further episodes of vomiting or other overt GI bleeding. At the time I saw the patient, he was fixated on eating. He states that he "feels fine." He denies any abdominal pain, hematemesis, melena or hematochezia. It is difficult to understand him at times. He denies any further complaints. Allergies Allergy/AdvReac Type Severity Reaction Status Date / Time mupirocin [From Bactroban] Allergy Verified 07/27/20 14:42 Home Medications Home Medications Medication Instructions Recorded Confirmed Type acetaminophen 325 mg capsule 650 mg PO Q4H PRN #60 cap 04/02/20 07/27/20 Rx aluminum-mag hydroxide-simethicone 10 ml PO QID PRN #3000 ml 04/02/20 07/27/20 Rx 200 mg-200 mg-20 mg/5 mL oral susp calcium carbonate 500 mg calcium 500 mg PO QAM 04/02/20 07/27/20 History (1,250 mg) tablet docusate sodium 100 mg capsule 100 mg PO BID #60 cap 04/02/20 07/27/20 Rx ferrous sulfate 325 mg (65 mg 325 mg PO BID #60 tab 04/02/20 07/27/20 Rx iron) tablet fluticasone 100 mcg-salmeterol 50 1 puffs INH BID #60 ea 04/02/20 07/27/20 Rx mcg/dose blistr powdr for inhalation Wheelchair (Manual or Powered) #1 ea 04/04/20 07/24/20 Rx ammonium lactate 12 % topical cream 1 appln TOP BID #140 gm 04/20/20 07/27/20 Rx pantoprazole 40 mg tablet,delayed 40 mg PO QAM 07/18/20 07/27/20 History release guaifenesin [Mucus Relief ER] 600 mg PO BID 07/24/20 07/27/20 History quetiapine [Seroquel] 50 mg PO HS 07/24/20 07/27/20 History quetiapine [Seroquel] 100 mg PO QAM 07/24/20 07/27/20 History tamsulosin [Flomax] 0.4 mg PO BID 07/24/20 07/27/20 History cetirizine [Zyrtec] 10 mg PO QAM 07/27/20 07/27/20 History finasteride [Proscar] 5 mg PO QAM 07/27/20 07/27/20 History fluticasone propionate [Allergy 1 sprays INTNAS QAM 07/27/20 07/27/20 History Relief (fluticasone)] gabapentin 300 mg PO BID 07/27/20 07/27/20 History ipratropium-albuterol [Combivent 1 puff INHALATION QID 07/27/20 07/27/20 History Respimat] montelukast 10 mg PO QAM 07/27/20 07/27/20 History mkpgcyue-lwv-szvqj-vit K-lycop 1 tab PO QAM 07/27/20 07/27/20 History [One-A-Day Men's Multivitamin] omeprazole 40 mg PO DAILY@1600 07/27/20 07/27/20 History Patient History Medical History Arthritis Aspiration pneumonia Aspiration pneumonitis Bilateral lower extremity edema BPH (benign prostatic hyperplasia) BPH with obstruction/lower urinary tract symptoms Chronic cough Chronic pulmonary aspiration Chronic pulmonary aspiration Critical illness myopathy Depression Engages in vaping Expressive aphasia FH: total knee replacement 2016 Hernia, hiatal History of drug abuse History of tobacco abuse Impulsive personality disorder Iron deficiency anemia Morbid obesity due to excess calories MRSA infection Neuropathy PSVT (paroxysmal supraventricular tachycardia) Pulmonary fibrosis TBI (traumatic brain injury) Surgical History H/O total knee replacement History of bursectomy Right elbow History of surgical procedure ankle fracture treatment Family History Father Heart disease Denies family history of Ovarian cancer Prostate cancer Diabetes Myocardial infarction Breast cancer Colorectal cancer Hypertension Social History Smoking Status: Former smoker Number of Years Since Quit: 34; Second Hand Exposure: No; Hx Alcohol Use: No Hx Substance Use: No Preferred Language: Arabic Communication Ability: Impaired 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 Beliefs That Will Affect Care: None marital status: Current Living Situation: Personal Care Facility Current [facility]uation Comment: [facility] current occupational status: disabled Other Information That Helps Us Care for You: No Feels Safe at Home: Yes Safety Concerns: Feels Safe At This Time caffeine: Yes (coffee ) Dental Care, Regularly: Yes Physical Activity Frequency: 3-4 Times per Week Seatbelt Use: sometimes Sunscreen Use: No Assistive Devices: Glasses, Walker and Wheelchair Review of Systems Constitutional: as per Subjective / HPI Eyes: as per Subjective / HPI Ear, Nose, Mouth, Throat: as per Subjective / HPI Respiratory: as per Subjective / HPI Cardiovascular: as per Subjective / HPI Gastrointestinal: as per Subjective / HPI Musculoskeletal: as per Subjective / HPI Integumentary: as per Subjective / HPI Neurologic: as per Subjective / HPI Psychiatric: as per Subjective / HPI Endocrine: as per Subjective / HPI Hematologic / Lymphatic: as per Subjective / HPI Allergy / Immunological: as per Subjective / HPI Physical Exam Constitutional: WD/WN, vitals as above Eyes: + anicteric sclerae Neck: trachea midline Respiratory: Auscultation: + diminished lung sounds Cardiovascular: RRR, no murmur, no edema Gastrointestinal (Abdomen): normal bowel sounds, soft, nontender, no hepatosplenomegaly Skin: no rashes, warm and dry Results & Data ([facility]) Vital Signs (Past 12 Hours) Vital Signs Temp Pulse Pulse Resp BP BP Pulse Ox 07/28/20 11:46 36.4 C L 81 16 114/70 92 07/28/20 11:45 78 18 91 07/28/20 07:43 77 18 93 07/28/20 07:27 84 07/28/20 06:43 36.7 C 80 18 107/68 93 07/28/20 03:19 36.6 C 83 18 98/63 L 90 PG Care Time/CCT Total # of Minutes Spent Total Time Spent with Patient: Total time spent is greater than 50% in coordination of care (as documented) at patient's floor/unit and/or counseling patient: Coding Level of Care Code 22271 Office/OBS Consult Lvl 3 Diagnoses GI bleed K92.2 Chronic pulmonary aspiration T17.908A
--- NOTE | 2020-07-28 14:08 | Hospitalist Progress Note ---
Date of Service July 28, 2020 Assessment & Plan (1) GI bleed: Admit med tele No further vomiting, mild decrease in hgb. DC pantoprazole drip and change to IV bid, add carafate and give clears to advance tomorrow per GI rec (2) Aspiration pneumonia: As seen on CT - bibasilar airspace consolidation, right greater than left Continue levaquin (3) Impulsive personality disorder: No disruptive or dangerous behaviors observed (4) BPH with obstruction/lower urinary tract symptoms: Resume 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 Psych deemed him ok to go home. Resume home psych meds. (6) Pulmonary fibrosis: Continue home inhalers (7) DVT prophylaxis: SCDs, hold chemoprophylaxis for GI bleed dispo: can transfer off of telemetry Admission and Anticipated Discharge Date Admission Date: July 27, 2020 Subjective Mr. Gaviria is feeling much better today, says he wants a cheeseburger. Denies any further nausea or vomiting, no change in bowels. ROS Constitutional: no chills, aches, sweats or fever Respiratory: no sob,cough, sputum, or wheezing Cardiac: no chest pain, palpitations, edema, orthopnea or lightheadedness GI: no abdominal pain, nausea, vomiting, diarrhea or constipation : no dysuria or hesitancy Extremities: no joint pain or weakness Skin: no rash All other systems reviewed and negative Physical Exam Physical Exam: General: no distress Eyes: normal inspection, PERLL Respiratory: chest non tender, clear to auscultation, normal breath sounds, no respiratory distress, no accessory muscle use Cardiac: regular rate and rhythm, no rub or gallop, no murmur, no edema, no jvd GI/: active bowel sounds, no abd pain or tenderness, soft, non distended Extremities: normal range of motion, normal strength, non tender Neuro/Psych: alert and oriented x 3, normal mood and affect Skin: normal color, dry Results & Data Results & Data ([facility]) Vital Signs (Past 12 Hours) Vital Signs Temp Pulse Pulse Resp BP BP Pulse Ox 07/28/20 11:46 36.4 C L 81 16 114/70 92 07/28/20 11:45 78 18 91 07/28/20 07:43 77 18 93 07/28/20 07:27 84 10/17/20 06:43 36.7 C 80 18 107/68 93 07/28/20 03:19 36.6 C 83 18 98/63 L 90 PG Care Time/CCT Total # of Minutes Spent Total Time Spent with Patient: Total time spent is greater than 50% in coordination of care (as documented) at patient's floor/unit and/or counseling patient: Coding Level of Care Code 13062 Subseq Hosp Care Lvl 2 Diagnoses GI bleed K92.2 Aspiration pneumonia J69.0 Impulsive personality disorder F60.3 BPH with obstruction/lower urinary tract symptoms N40.1; N13.8 Depression F32.9 Pulmonary fibrosis J84.10 DVT prophylaxis Z29.9
[2020-07-28] MEDS ORDERED: NON-FORMULARY MEDICATION (Omeprazole 40 MG) PO SCH (16:00)
[2020-07-28] MEDS: SUCRALFATE 1 GM/10 ML UDC PO SCH ×2 (16:15→21:17)
[2020-07-28] MEDS: BACLOFEN 10 MG TAB PO PRN (18:34)
[2020-07-28] MEDS: PANTOprazole 40 MG in SYRINGE 0 ML IV SCH (21:16)
[2020-07-28] MEDS: QUEtiapine FUMARATE 25 MG TABLET PO SCH (21:30)
[2020-07-29] MEDS: CALCIUM CARBONATE 1250MG TAB PO SCH (07:44)
[2020-07-29] MEDS: QUEtiapine FUMARATE 100 MG TABLET PO SCH (07:44)
[2020-07-29] MEDS: FERROUS SULFATE 325 MG TAB PO SCH ×2 (07:44→21:08)
[2020-07-29] MEDS: FINASTERIDE 5 MG TAB PO SCH (07:44)
[2020-07-29] MEDS: levoFLOXacin/D5W 750 MG/150 ML BAG IV SCH (07:44)
[2020-07-29] MEDS: PANTOprazole 40 MG in SYRINGE 0 ML IV SCH (07:44)
[2020-07-29] MEDS: MONTELUKAST SODIUM 10 MG TABLET PO SCH (07:45)
[2020-07-29] MEDS: MULTIVITAMIN TAB PO SCH (07:45)
[2020-07-29] MEDS: CETIRIZINE HCL 10 MG TABLET PO SCH (07:45)
[2020-07-29] MEDS: TAMSULOSIN HCL 0.4 MG CAP PO SCH ×2 (07:45→21:09)
[2020-07-29] MEDS: DOCUSATE SODIUM 100 MG CAP PO SCH ×2 (07:45→21:08)
[2020-07-29] MEDS: GABAPENTIN 300 MG CAP PO SCH ×2 (07:45→21:10)
[2020-07-29] MEDS: guaiFENesin 600 MG TABCR PO SCH ×2 (07:46→21:09)
[2020-07-29] MEDS: SUCRALFATE 1 GM/10 ML UDC PO SCH ×4 (07:46→21:08)
[2020-07-29] MEDS: FLUTICASONE PROPIONATE NA SPR 16 GM BTL SCH (07:46)
[2020-07-29] MEDS: FLUTICASONE/VILANTEROL 100/25MCG 14 PUFFS/INHALER INH SCH (07:46)
[2020-07-29] MEDS: AMMONIUM LACTATE 12% LOTION 225 GM BTL EXT SCH ×2 (07:46→21:07)
--- NOTE | 2020-07-29 09:36 | Gastroenterology Progress Note ---
Date of Service July 29, 2020 Assessment & Plan (1) GI bleed: Continue current therapy Advance diet as tolerated No plans on invasive testing due to Aspiration pneumonia Will follow clinical course and make further recommendations as needed Admission and Anticipated Discharge Date Admission Date: July 27, 2020 Subjective No overt GI bleeding overnight. Patient asking for increased diet. He denies any abdominal pain, fevers, chills, nausea, vomiting, diarrhea, hematemesis, melena or hematochezia. Review of Systems Review of Systems: All systems reviewed & are unremarkable except as noted in HPI & below Physical Exam Constitutional: + ill appearing; no acute distress Respiratory: normal respiratory effort; no respiratory distress and no labored breathing Gastrointestinal (Abdomen): Inspection/Auscultation: abdomen normal to inspection and normal bowel sounds; abdomen not distended Percussion/Palpation: abdomen soft; abdomen nontender Results & Data Results & Data ([facility]) Vital Signs (Past 12 Hours) Vital Signs Temp Pulse Resp BP BP Pulse Ox 07/29/20 07:16 36.7 C 78 18 115/68 91 07/28/20 23:36 37.3 C 88 18 114/69 91 PG Care Time/CCT Total # of Minutes Spent Total Time Spent with Patient: Total time spent is greater than 50% in coordination of care (as documented) at patient's floor/unit and/or counseling patient: Coding Level of Care Code 58729 Subseq Hosp Care Lvl 2 Diagnoses GI bleed K92.2 GI bleed type/associated pathology: unspecified gastrointestinal hemorrhage type (1) GI bleed GI bleed type/associated pathology: unspecified gastrointestinal hemorrhage type Qualified Code(s): K92.2 - Gastrointestinal hemorrhage, unspecified
[2020-07-29] MEDS: ALBUTEROL HFA 8 GM INHALER INH SCH ×4 (10:10→19:18)
[2020-07-29] MEDS: IPRATROPIUM BROMIDE HFA INHALER INH SCH ×4 (10:10→19:19)
--- NOTE | 2020-07-29 12:13 | Hospitalist Progress Note ---
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 Psych deemed him ok to go home. Continue home psych meds. (6) Pulmonary fibrosis: Continue home inhalers (7) Hiccups: Given baclofen with good effect, continue prn (8) DVT prophylaxis: SCDs, hold chemoprophylaxis for GI bleed Admission and Anticipated Discharge Date Admission Date: July 27, 2020 Subjective Mr. Gaviria has not had any vomiting overnight. He refused lab work this morning and is requesting a four egg cheese omelet. ROS Constitutional: no chills, aches, sweats or fever Respiratory: no sob,cough, sputum, or wheezing Cardiac: no chest pain, palpitations, edema, orthopnea or lightheadedness GI: no abdominal pain, nausea, vomiting, diarrhea or constipation : no dysuria or hesitancy Extremities: no joint pain or weakness Skin: no rash All other systems reviewed and negative Physical Exam Physical Exam: General: no distress Eyes: normal inspection, PERLL Respiratory: chest non tender, clear to auscultation, normal breath sounds, no respiratory distress, no accessory muscle use Cardiac: regular rate and rhythm, no rub or gallop, no murmur, no edema, no jvd GI/: active bowel sounds, no abd pain or tenderness, soft, non distended Extremities: normal range of motion, normal strength, non tender Neuro/Psych: alert and oriented x 3, normal mood and affect Skin: normal color, dry Results & Data Results & Data ([facility]) Vital Signs (Past 12 Hours) Vital Signs Temp Pulse Resp BP Pulse Ox 07/29/20 07:16 36.7 C 78 18 115/68 91 PG Care Time/CCT Total # of Minutes Spent Total Time Spent with Patient: Total time spent is greater than 50% in coordination of care (as documented) at patient's floor/unit and/or counseling patient: Coding Level of Care Code 07418 Subseq Hosp Care Lvl 3 Diagnoses GI bleed K92.2 GI bleed type/associated pathology: unspecified gastrointestinal hemorrhage type Aspiration pneumonia J69.0 Impulsive personality disorder F60.3 BPH with obstruction/lower urinary tract symptoms N40.1; N13.8 Depression F32.9 Pulmonary fibrosis J84.10 Hiccups R06.6 DVT prophylaxis Z29.9 (1) GI bleed GI bleed type/associated pathology: unspecified gastrointestinal hemorrhage type Qualified Code(s): K92.2 - Gastrointestinal hemorrhage, unspecified
[2020-07-29] MEDS: QUEtiapine FUMARATE 25 MG TABLET PO SCH (21:10)
[2020-07-29] MEDS: PANTOprazole 40 MG TAB PO SCH (21:11)
[2020-07-29] MEDS: BACLOFEN 10 MG TAB PO PRN (21:20)
[2020-07-30] MEDS: ALBUTEROL HFA 8 GM INHALER INH SCH ×4 (07:05→19:38)
[2020-07-30] MEDS: IPRATROPIUM BROMIDE HFA INHALER INH SCH ×4 (07:05→19:38)
[2020-07-30] MEDS: SUCRALFATE 1 GM/10 ML UDC PO SCH ×4 (08:13→20:21)
[2020-07-30] MEDS: PANTOprazole 40 MG TAB PO SCH ×2 (08:13→20:24)
[2020-07-30] MEDS: MONTELUKAST SODIUM 10 MG TABLET PO SCH (09:27)
[2020-07-30] MEDS: levoFLOXacin/D5W 750 MG/150 ML BAG IV SCH (09:27)
[2020-07-30] MEDS: QUEtiapine FUMARATE 100 MG TABLET PO SCH (09:28)
[2020-07-30] MEDS: MULTIVITAMIN TAB PO SCH (09:28)
[2020-07-30] MEDS: guaiFENesin 600 MG TABCR PO SCH ×2 (09:28→20:24)
[2020-07-30] MEDS: FINASTERIDE 5 MG TAB PO SCH (09:28)
[2020-07-30] MEDS: CETIRIZINE HCL 10 MG TABLET PO SCH (09:28)
[2020-07-30] MEDS: FLUTICASONE/VILANTEROL 100/25MCG 14 PUFFS/INHALER INH SCH (09:28)
[2020-07-30] MEDS: GABAPENTIN 300 MG CAP PO SCH ×2 (09:28→20:23)
[2020-07-30] MEDS: DOCUSATE SODIUM 100 MG CAP PO SCH ×2 (09:28→20:38)
[2020-07-30] MEDS: CALCIUM CARBONATE 1250MG TAB PO SCH (09:28)
[2020-07-30] MEDS: TAMSULOSIN HCL 0.4 MG CAP PO SCH ×2 (09:28→20:41)
[2020-07-30] MEDS: FERROUS SULFATE 325 MG TAB PO SCH ×2 (09:28→20:23)
[2020-07-30] MEDS: AMMONIUM LACTATE 12% LOTION 225 GM BTL EXT SCH ×2 (09:29→20:33)
[2020-07-30] MEDS: FLUTICASONE PROPIONATE NA SPR 16 GM BTL SCH (09:51)
[2020-07-30 13:59] LABS: iSTAT Creatinine 0.7 mg/dl (0.6-1.3); iSTAT Hemoglobin 14.3 g/dl (14.0-18.0); iSTAT Ionized Calcium 1.2 mmol/l (1.12-1.32); iSTAT Potassium 3.8 mmol/L (3.3-5.0)
--- NOTE | 2020-07-30 16:09 | Hospitalist Progress Note ---
Date of Service July 30, 2020 Assessment & Plan (1) GI bleed: Suspected hematemesis upon admission-had vomiting and had lethargy on admission, was noted to have possible blood in his russell. He denies any hematemesis He has had no further vomiting, hgb not checked since admission as patient refused but no s/s of bleeding clinically Have since changed IV pantoprazole push to po bid, and will continue carafate and advance diet today to regular GI consulted - no invasive workup/EGD at this time (2) Aspiration pneumonia: Patient with history of the same As seen on CT abdomen/pelvis- bibasilar airspace consolidation, right greater than left Also with a history of pulmonary fibrosis Has rales on examination, not hypoxic Afebrile Continue albuterol and guaifenesin, Protonix Continue levaquin x7-day course Speech consult appreciated-has moderate oropharyngeal dysphagia but is noncompliant with speech recommendations in the past as per the reports. 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 Psych deemed him ok to go home from the ER on 07/24. Continue home psych meds of Seroquel. Case management notes report that he has a nurse psych that visits him at his personal long-term (6) Pulmonary fibrosis: Continue home inhalers (7) Hiccups: Given baclofen with good effect, continue prn (8) DVT prophylaxis: SCDs, hold chemoprophylaxis for GI bleed Disposition-stable for discharge, however PT/OT consultations performed today recommend [facility] facility Awaiting determination from case management for discharge Covid test performed in preparation for return to personal long-term and was negative Admission and Anticipated Discharge Date Admission Date: July 27, 2020 Subjective Patient denies any problems, denies shortness of breath. Tells me that the suspected blood on his russell on admission was actually he thinks regurgitated multivitamin that was red in color. He is quite difficult to understand with his dysarthria but seems coherent in thought process. He tells me that he is not happy at his current personal long-term and does not want to go back there. Review of Systems Review of Systems: All systems reviewed & are unremarkable except as noted in HPI & below Physical Exam Constitutional: WD/WN, vitals as above Eyes: + anicteric sclerae Neck: trachea midline, no thyromegaly Respiratory: + abnormal respiratory effort Auscultation: + crackles (At bases bilaterally); no wheezes Cardiovascular: RRR, no murmur, no edema Chest (Breasts): Chest: normal inspection of chest Gastrointestinal (Abdomen): normal bowel sounds, soft, nontender, no hepatosplenomegaly Musculoskeletal: Extremities: extremities normal to inspection; no cyanosis and no clubbing Skin: no rashes, warm and dry Neurologic: awake Speech / Cognition: + abnormal speech (With significant dysarthria) With right-sided weakness and flexion contracture of the right upper extremity Psychiatric: Orientation: alert, oriented to person, oriented to place and cooperative Affect: + flat affect Lymphatic: no lymphedema Results & Data Results & Data ([facility]) Vital Signs (Past 12 Hours) Vital Signs Temp Pulse Resp BP Pulse Ox 07/30/20 15:24 76 18 93 07/30/20 15:17 36.6 C 80 18 118/66 92 07/30/20 10:57 73 18 93 07/30/20 07:55 36.4 C L 77 18 126/68 91 07/30/20 07:05 72 18 92 Laboratory Results 07/30/20 07/30/20 07/27/20 Range/Units 14:25 14:25 12:28 POC Hgb 14.3 (14.0-18.0) g/dl POC Hct 42 (42-52) % POC Sodium 139 (135-144) mmol/L POC Potassium 3.8 (3.3-5.0) mmol/L POC Chloride 103 (101-112) mmol/L POC Total CO2 24 (24-31) mmol/L POC Anion Gap 17.0 (16-25) mmol/L POC BUN 34 H (7-18) mg/dl POC Creatinine 0.7 (0.6-1.3) mg/dl POC Glucose (other) 112 H (70-99) mg/dl POC Ioniz Calcium Nelson 1.20 (1.12-1.32) mmol/l COVID-19 Eval [facility] SARS-CoV-2, RNA, NAAT NEGATIVE (NEGATIVE) PG Care Time/CCT Total # of Minutes Spent Total Time Spent with Patient: Total time spent is greater than 50% in coordination of care (as documented) at patient's floor/unit and/or counseling patient: Coding Level of Care Code 13806 Subseq Hosp Care Lvl 2 Diagnoses GI bleed K92.2 GI bleed type/associated pathology: unspecified gastrointestinal hemorrhage type Aspiration pneumonia J69.0 Impulsive personality disorder F60.3 BPH with obstruction/lower urinary tract symptoms N40.1; N13.8 Depression F32.9 Pulmonary fibrosis J84.10 Hiccups R06.6 DVT prophylaxis Z29.9 (1) GI bleed GI bleed type/associated pathology: unspecified gastrointestinal hemorrhage type Qualified Code(s): K92.2 - Gastrointestinal hemorrhage, unspecified
[2020-07-30] MEDS: QUEtiapine FUMARATE 25 MG TABLET PO SCH (20:24)
[2020-07-31] MEDS: ALBUTEROL HFA 8 GM INHALER INH SCH ×4 (07:24→19:27)
[2020-07-31] MEDS: IPRATROPIUM BROMIDE HFA INHALER INH SCH ×4 (07:24→19:26)
[2020-07-31] MEDS: SUCRALFATE 1 GM/10 ML UDC PO SCH ×4 (07:28→20:06)
[2020-07-31] MEDS: FINASTERIDE 5 MG TAB PO SCH (08:27)
[2020-07-31] MEDS: CETIRIZINE HCL 10 MG TABLET PO SCH (08:27)
[2020-07-31] MEDS: CALCIUM CARBONATE 1250MG TAB PO SCH (08:27)
[2020-07-31] MEDS: guaiFENesin 600 MG TABCR PO SCH ×2 (08:27→20:06)
[2020-07-31] MEDS: PANTOprazole 40 MG TAB PO SCH ×2 (08:27→20:06)
[2020-07-31] MEDS: GABAPENTIN 300 MG CAP PO SCH ×2 (08:27→20:08)
[2020-07-31] MEDS: TAMSULOSIN HCL 0.4 MG CAP PO SCH ×2 (08:27→20:06)
[2020-07-31] MEDS: QUEtiapine FUMARATE 100 MG TABLET PO SCH (08:27)
[2020-07-31] MEDS: FERROUS SULFATE 325 MG TAB PO SCH ×2 (08:27→20:07)
[2020-07-31] MEDS: MONTELUKAST SODIUM 10 MG TABLET PO SCH (08:28)
[2020-07-31] MEDS: FLUTICASONE/VILANTEROL 100/25MCG 14 PUFFS/INHALER INH SCH (08:28)
[2020-07-31] MEDS: AMMONIUM LACTATE 12% LOTION 225 GM BTL EXT SCH ×2 (08:28→20:05)
[2020-07-31] MEDS: MULTIVITAMIN TAB PO SCH (08:28)
[2020-07-31] MEDS: FLUTICASONE PROPIONATE NA SPR 16 GM BTL SCH (08:29)
[2020-07-31] MEDS: levoFLOXacin/D5W 750 MG/150 ML BAG IV SCH (08:29)
[2020-07-31] MEDS: DOCUSATE SODIUM 100 MG CAP PO SCH ×2 (08:42→20:16)
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
[2020-07-31] MEDS: QUEtiapine FUMARATE 25 MG TABLET PO SCH (20:16)
[2020-08-01] MEDS: FLUTICASONE/VILANTEROL 100/25MCG 14 PUFFS/INHALER INH SCH (07:56)
[2020-08-01] MEDS: SUCRALFATE 1 GM/10 ML UDC PO SCH ×2 (07:56→12:37)
[2020-08-01] MEDS: CETIRIZINE HCL 10 MG TABLET PO SCH (07:57)
[2020-08-01] MEDS: GABAPENTIN 300 MG CAP PO SCH (07:57)
[2020-08-01] MEDS: MONTELUKAST SODIUM 10 MG TABLET PO SCH (07:57)
[2020-08-01] MEDS: FERROUS SULFATE 325 MG TAB PO SCH (07:58)
[2020-08-01] MEDS: CALCIUM CARBONATE 1250MG TAB PO SCH (07:58)
[2020-08-01] MEDS: TAMSULOSIN HCL 0.4 MG CAP PO SCH (07:58)
[2020-08-01] MEDS: FINASTERIDE 5 MG TAB PO SCH (07:58)
[2020-08-01] MEDS: MULTIVITAMIN TAB PO SCH (07:58)
[2020-08-01] MEDS: QUEtiapine FUMARATE 100 MG TABLET PO SCH (07:58)
[2020-08-01] MEDS: PANTOprazole 40 MG TAB PO SCH (07:58)
[2020-08-01] MEDS: FLUTICASONE PROPIONATE NA SPR 16 GM BTL SCH (07:59)
[2020-08-01] MEDS: guaiFENesin 600 MG TABCR PO SCH (07:59)
[2020-08-01] MEDS: AMMONIUM LACTATE 12% LOTION 225 GM BTL EXT SCH (07:59)
[2020-08-01] MEDS: levoFLOXacin/D5W 750 MG/150 ML BAG IV SCH (07:59)
[2020-08-01] MEDS: ALBUTEROL HFA 8 GM INHALER INH SCH ×3 (08:00→15:15)
[2020-08-01] MEDS: IPRATROPIUM BROMIDE HFA INHALER INH SCH ×3 (08:00→15:15)
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
[2020-08-01] MEDS: DOCUSATE SODIUM 100 MG CAP PO SCH (12:37)
== END 2020-08-01 06:05 | DRG 377 ==
LOC: ED 11:13 → 2W 14:49 → SUATTDRO 14:49 → 2W 16:00 → 3W 07-29 18:52

== ENCOUNTER 2021-10-23 17:47 | Observation (INO) ==
--- NOTE | 2021-10-23 18:14 | Emergency Department Note ---
Impression & Plan Aspiration pneumonitis, Anemia, Hx of traumatic brain injury ED Provider Note NAME: Carley CORBIN AGE: 60 SEX: M : 1960 ARRIVES VIA: Ambulance INFORMANT: Patient, ED PROVIDER(S): Choco Slade MD Chief Complaint: Outpatient x-ray with pneumonia and cough. HPI: Patient does present from personal alf due to concern for outpatient chest x-ray which showed possible pneumonia and the patient has had associated wet cough. Per review of the patient's medical history the patient does have TBI and history of aspiration pneumonia. The patient denies any Patient does have some occasional shortness of breath and cough but does not feels that it is productive. The patient is not had any nausea or vomiting. The patient does feel as though he has some indigestion and would like some Mylanta. The patient denies any recent falls or trauma. Patient denies any leg swelling. Patient denies head or neck pain. Patient was referred for further evaluation and treatment. The patient's chest x-ray showed a report of a left perihilar pneumonia. Patient does reside at a alf. ROS: See HPI for pertinent positives and negatives. A total of 10 systems were reviewed and otherwise negative. Past medical history: See below Surgical history: See below Social history: See below Physical Exam: GENERAL: Mildly ill in appearance, wearing glasses and a mask, belching. EYE EXAM: Normal conjunctiva. PERRL, no anisocoria and EOM's grossly intact w/o pain. NECK: Supple, no nuchal rigidity, no adenopathy, non-tender. No signs of meningismus. No stridor. LUNGS: Coarse sounds throughout but worst in the right chest. Normal chest wall mechanics. HEART: NSR, no MRG. ABDOMEN: Abdomen soft, non-tender, normo-active bowel sounds, no masses, no rebound or guarding. BACK: No CVA TTP. SKIN: No rashes and no bruising. UPPER EXTREMITIES: Upper extremities are grossly normal. LOWER EXTREMITIES: Grossly normal, no edema. No obvious asymmetry. NEURO EXAM: A&O x3, cranial nerves II-XII grossly intact, normal speech, moves all 4 extremities on command w/o issue. Differential diagnoses: Reactive airway disease, pneumonia, pneumothorax, COPD, CHF, infections, cardiac ischemia, pulmonary embolism, musculoskeletal, gastrointestinal, as well as other pathologies. Course: Patient was seen and evaluated the bedside. Full history physical exam was performed. Imaging Studies: See Below Cardiac monitoring: An order was placed for continuous cardiac monitoring. The monitor shows a rate of 68 with sinus rhythm. MDM: She did present due to concern for cough and possible pneumonia. The patient had blood work completed blood cultures and the patient was treated for possible healthcare associated pneumonia with vancomycin cefepime and azithromycin. Patient has a normal white count. Patient's kidney function is not show significant findings. Patient's urinalysis does not show evidence of blood or infection. Patient's COVID flu and RSV are negative. Chest x-ray is negative with a negative head CT. Patient's chest x-ray shows mild bibasilar opacities suggesting atelectasis versus pneumonitis. We will treat and continue for possible pneumonia especially in light of the patient's history of aspiration. I did speak to the on-call hospice Dr. Li and the patient was admitted to the medicine service. Past Med/Surg History Medical History Arthritis Aspiration pneumonitis Bilateral lower extremity edema BPH (benign prostatic hyperplasia) BPH with obstruction/lower urinary tract symptoms Chronic cough Chronic pulmonary aspiration Critical illness myopathy Depression Engages in vaping Expressive aphasia FH: total knee replacement 2016 GI bleed Hernia, hiatal History of drug abuse History of tobacco abuse Impulsive personality disorder Iron deficiency anemia Morbid obesity due to excess calories MRSA infection Neuropathy PSVT (paroxysmal supraventricular tachycardia) Pulmonary fibrosis TBI (traumatic brain injury) Surgical History H/O total knee replacement History of bursectomy Right elbow History of surgical procedure ankle fracture treatment Family History Father Heart disease Denies family history of Ovarian cancer Prostate cancer Diabetes Myocardial infarction Breast cancer Colorectal cancer Hypertension Social History Smoking Status: Unknown if ever smoked Tobacco Type: Cigarettes Number of Years Since Quit: 34; Second Hand Exposure: No; Hx Alcohol Use: No Hx Substance Use: No Preferred Language: Bahraini Communication Ability: Impaired Boilers And Pressure Vessels Inspector Required: No Beliefs That Will Affect Care: None marital status: Current Living Situation: [facility] Current Living Situation Comment: Cooper colon current occupational status: disabled Feels Safe at Home: Yes caffeine: Yes (coffee ) Dental Care, Regularly: Yes Physical Activity Frequency: 3-4 Times per Week Seatbelt Use: sometimes Sunscreen Use: No Assistive Devices: Walker Allergies Allergies Allergy/AdvReac Type Severity Reaction Status Date / Time mupirocin [From Bactroban] Allergy Verified 09/18/21 08:53 Home Meds Home Medications Medication Instructions Recorded Confirmed calcium carbonate 500 mg calcium 500 mg PO QAM 04/02/20 10/23/21 (1,250 mg) tablet (Oyster Shell Calcium) montelukast 10 mg tablet 10 mg PO DAILY 07/22/21 10/23/21 (Singulair) sodium chloride 0.65 % nasal spray 1 spray INTRANASAL BID PRN 07/22/21 10/23/21 aerosol (Saline Mist) tamsulosin 0.4 mg capsule (Flomax) 0.4 mg PO Q12 10/23/21 10/23/21 Previous Rx's Medication Instructions Recorded Wheelchair (Manual) #1 ea 04/04/20 ascorbate calcium (vitamin C) 500 500 mg PO QID #120 tab 09/20/20 mg tablet apolinar.stocking,knee,reg,smal #12 ea 11/02/20 (T.E.D. Anti-Embolism Stocking) loratadine 10 mg tablet 10 mg PO DAILY #30 tab 12/13/20 pantoprazole 40 mg tablet,delayed 40 mg PO BID #60 tab 12/28/20 release bupropion HCl 150 mg tablet,12 hr 150 mg PO QAM #90 ea 01/30/21 sustained-release (Wellbutrin SR) famotidine 20 mg tablet (Acid 20 mg PO DAILY #90 tab 01/30/21 Slot Supervisor (famotidine)) fluticasone propionate 50 2 spray INTNAS QAM #16 g 08/27/21 mcg/actuation nasal spray,suspension (Allergy Relief (fluticasone)) guaifenesin 600 mg tablet, 600 mg PO Q12H PRN #60 tab 09/23/21 extended release 12 hr (Mucinex) gabapentin 300 mg capsule 300 mg PO BID #60 cap 10/14/21 aluminum-mag hydroxide-simethicone 5 ml PO QID PRN #30 ml 10/23/21 400 mg-400 mg-40 mg/5 mL oral susp (Mylanta Maximum Strength) Results & Data (ED) Vital Signs Vital Signs - 24 hr 10/23/21 17:42 10/23/21 19:45 10/23/21 20:01 Temperature 36.4 C L Temperature Source Oral Pulse Rate 74 74 Pulse Rate [Apical] 70 Pulse Rhythm Regular Pulse Rhythm [Apical] Regular Pulse Strength Normal Respiratory Rate 20 16 Respiratory Effort / Characteristics Non-Labored Non-Labored Spontaneous Respiratory Depth Normal Normal Respiratory Pattern Regular Blood Pressure 146/90 H Blood Pressure [Right Arm] 140/82 Blood Pressure Mean 108 Blood Pressure Mean [Right Arm] 101 Blood Pressure Position Lying Pulse Oximetry 97 100 100 Oxygen Delivery Method Room Air Room Air Room Air Sepsis Recent Fever Within 48 Hours No Sepsis New/Unexplained Change in Mental Status No Sepsis Action Taken by Nursing No Action Required 10/23/21 22:13 10/23/21 23:36 Temperature 36.7 C Temperature Source Oral Pulse Rate Pulse Rate [Apical] 70 65 Pulse Rhythm Pulse Rhythm [Apical] Pulse Strength Respiratory Rate 16 16 Respiratory Effort / Characteristics Respiratory Depth Normal Respiratory Pattern Blood Pressure Blood Pressure [Right Arm] 125/86 123/66 Blood Pressure Mean Blood Pressure Mean [Right Arm] 99 85 Blood Pressure Position Pulse Oximetry 95 Oxygen Delivery Method Room Air Sepsis Recent Fever Within 48 Hours Sepsis New/Unexplained Change in Mental Status Sepsis Action Taken by [facility] Medications Current Medication List: was personally reviewed by me Laboratory Data Attestation: I reviewed the patient's lab results. Result diagrams: 10/24/21 02:49 10/24/21 02:49 Lab Results 10/23/21 10/23/21 10/23/21 Range/Units 15:11 19:30 20:05 WBC 9.66 (4.8-10.8) K/uL RBC 4.25 L (4.7-6.1) M/uL Hgb 13.3 L (14.0-18.0) g/dL Hct 39.1 L (42-52) % MCV 92.0 (80-100) fL MCH 31.3 (25-34) pg MCHC 34.0 (32-36) g/dL RDW Std Deviation 47.7 H (36.4-46.3) fL RDW Coeff of Hillary 14.2 (11.5-14.5) % Plt Count 247 (130-400) K/uL MPV 9.7 (7.4-10.4) fL Immature Gran % (Auto) 0.4 % Neut % (Auto) 71.0 % Lymph % (Auto) 16.0 % Andrews % (Auto) 8.5 % Eos % (Auto) 3.8 % Baso % (Auto) 0.3 % Neut # (Auto) 6.85 H (1.4-6.5) K/uL Lymph # (Auto) 1.55 (1.2-3.4) K/uL Andrews # (Auto) 0.82 H (0.11-0.59) K/uL Eos # (Auto) 0.37 (0-0.5) K/uL Baso # (Auto) 0.03 (0-0.2) K/uL Immature Gran # (Auto) 0.04 H (0.00-0.02) K/uL VBG pH Cancelled VBG pCO2 Cancelled VBG pO2 Cancelled VBG HCO3 Cancelled VBG O2 Saturation Cancelled VBG Base Excess Cancelled Barometric Pressure Cancelled Sodium (136-145) mmol/L Potassium (3.5-5.1) mmol/L Chloride (98-107) mmol/L Carbon Dioxide (21-32) mmol/L Anion Gap (3-11) BUN (6-23) mg/dl Creatinine (0.6-1.4) mg/dl Est Cr Clr Drug Dosing Est GFR ( Amer) ml/min Est GFR (Non-Af Amer) ml/min BUN/Creatinine Ratio (10-20) Glucose (70-99) mg/dl Calcium (8.5-10.1) mg/dl Total Bilirubin (0.2-1.0) mg/dl AST (13-39) U/L ALT (7-52) U/L Alkaline Phosphatase (34-104) U/L Troponin I (0-0.04) ng/ml B-Natriuretic Peptide (0-100) pg/ml Total Protein (6.0-8.3) gm/dl Albumin (3.4-5.0) gm/dl Globulin (2.5-4.0) gm/dl Albumin/Globulin Ratio (0.9-2) Procalcitonin (0-0.5) ng/ml Urine Color Urine Appearance (Clear) Urine pH (4.5-7.5) Ur Specific [place] (1.000-1.030) Urine Protein (Negative) Urine Glucose (UA) (Negative) Urine Ketones (Negative) Urine Blood (Negative) Urine Nitrite (Negative) Urine Bilirubin (Negative) Urine Urobilinogen (Negative) Ur Leukocyte Esterase (Negative) Urine WBC (Auto) (0-5) /hpf Urine RBC (Auto) (0-4) /hpf U Hyaline Cast (Auto) (0-5) /lpf U Epithel Cells (Auto) (0-5) /lpf Urine Bacteria (Auto) (Negative) Urine Opiates Screen (Neg) Ur Methadone, Qual (Neg) Urine Barbiturates (Neg) Ur Phencyclidine (PCP) (Neg) U Amphetamin/Meth Scrn (Neg) MDMA (Ecstasy) Screen (Neg) U Benzodiazepines Scrn (Neg) Ur Cocaine Metabolite (Neg) U Marijuana (THC) Screen (Neg) SARS-CoV-2 (PCR) NEGATIVE (Negative) Influenza Type A (PCR) Negative (Neg) Influenza Type B (PCR) Negative (Neg) RSV (RT-PCR) Negative (Neg) 10/23/21 10/23/21 10/23/21 Range/Units 20:05 20:05 20:07 WBC (4.8-10.8) K/uL RBC (4.7-6.1) M/uL Hgb (14.0-18.0) g/dL Hct (42-52) % MCV (80-100) fL MCH (25-34) pg MCHC (32-36) g/dL RDW Std Deviation (36.4-46.3) fL RDW Coeff of Hillary (11.5-14.5) % Plt Count (130-400) K/uL MPV (7.4-10.4) fL Immature Gran % (Auto) % Neut % (Auto) % Lymph % (Auto) % Andrews % (Auto) % Eos % (Auto) % Baso % (Auto) % Neut # (Auto) (1.4-6.5) K/uL Lymph # (Auto) (1.2-3.4) K/uL Andrews # (Auto) (0.11-0.59) K/uL Eos # (Auto) (0-0.5) K/uL Baso # (Auto) (0-0.2) K/uL Immature Gran # (Auto) (0.00-0.02) K/uL VBG pH VBG pCO2 VBG pO2 VBG HCO3 VBG O2 Saturation VBG Base Excess Barometric Pressure Sodium 137 (136-145) mmol/L Potassium (3.5-5.1) mmol/L Chloride 104 (98-107) mmol/L Carbon Dioxide 25 (21-32) mmol/L Anion Gap 8 (3-11) BUN 19 (6-23) mg/dl Creatinine 0.71 (0.6-1.4) mg/dl Est Cr Clr Drug Dosing Not Reportable Est GFR ( Amer) 116.5 ml/min Est GFR (Non-Af Amer) 100.6 ml/min BUN/Creatinine Ratio 26.8 H (10-20) Glucose 90 (70-99) mg/dl Calcium 8.7 (8.5-10.1) mg/dl Total Bilirubin 0.5 (0.2-1.0) mg/dl AST (13-39) U/L ALT 18 (7-52) U/L Alkaline Phosphatase (34-104) U/L Troponin I < 0.03 (0-0.04) ng/ml B-Natriuretic Peptide 25 (0-100) pg/ml Total Protein 6.8 (6.0-8.3) gm/dl Albumin 3.5 (3.4-5.0) gm/dl Globulin 3.3 (2.5-4.0) gm/dl Albumin/Globulin Ratio 1.1 (0.9-2) Procalcitonin < 0.05 (0-0.5) ng/ml Urine Color Urine Appearance (Clear) Urine pH (4.5-7.5) Ur Specific [place] (1.000-1.030) Urine Protein (Negative) Urine Glucose (UA) (Negative) Urine Ketones (Negative) Urine Blood (Negative) Urine Nitrite (Negative) Urine Bilirubin (Negative) Urine Urobilinogen (Negative) Ur Leukocyte Esterase (Negative) Urine WBC (Auto) (0-5) /hpf Urine RBC (Auto) (0-4) /hpf U Hyaline Cast (Auto) (0-5) /lpf U Epithel Cells (Auto) (0-5) /lpf Urine Bacteria (Auto) (Negative) Urine Opiates Screen (Neg) Ur Methadone, Qual (Neg) Urine Barbiturates (Neg) Ur Phencyclidine (PCP) (Neg) U Amphetamin/Meth Scrn (Neg) MDMA (Ecstasy) Screen (Neg) U Benzodiazepines Scrn (Neg) Ur Cocaine Metabolite (Neg) U Marijuana (THC) Screen (Neg) SARS-CoV-2 (PCR) (Negative) Influenza Type A (PCR) (Neg) Influenza Type B (PCR) (Neg) RSV (RT-PCR) (Neg) 10/23/21 10/23/21 10/23/21 Range/Units 21:02 22:04 22:04 WBC (4.8-10.8) K/uL RBC (4.7-6.1) M/uL Hgb (14.0-18.0) g/dL Hct (42-52) % MCV (80-100) fL MCH (25-34) pg MCHC (32-36) g/dL RDW Std Deviation (36.4-46.3) fL RDW Coeff of Hillary (11.5-14.5) % Plt Count (130-400) K/uL MPV (7.4-10.4) fL Immature Gran % (Auto) % Neut % (Auto) % Lymph % (Auto) % Andrews % (Auto) % Eos % (Auto) % Baso % (Auto) % Neut # (Auto) (1.4-6.5) K/uL Lymph # (Auto) (1.2-3.4) K/uL Andrews # (Auto) (0.11-0.59) K/uL Eos # (Auto) (0-0.5) K/uL Baso # (Auto) (0-0.2) K/uL Immature Gran # (Auto) (0.00-0.02) K/uL VBG pH VBG pCO2 VBG pO2 VBG HCO3 VBG O2 Saturation VBG Base Excess Barometric Pressure Sodium (136-145) mmol/L Potassium 3.7 (3.5-5.1) mmol/L Chloride (98-107) mmol/L Carbon Dioxide (21-32) mmol/L Anion Gap (3-11) BUN (6-23) mg/dl Creatinine (0.6-1.4) mg/dl Est Cr Clr Drug Dosing Est GFR ( Amer) ml/min Est GFR (Non-Af Amer) ml/min BUN/Creatinine Ratio (10-20) Glucose (70-99) mg/dl Calcium (8.5-10.1) mg/dl Total Bilirubin (0.2-1.0) mg/dl AST 18 (13-39) U/L ALT (7-52) U/L Alkaline Phosphatase 56 (34-104) U/L Troponin I (0-0.04) ng/ml B-Natriuretic Peptide (0-100) pg/ml Total Protein (6.0-8.3) gm/dl Albumin (3.4-5.0) gm/dl Globulin (2.5-4.0) gm/dl Albumin/Globulin Ratio (0.9-2) Procalcitonin (0-0.5) ng/ml Urine Color Yellow Urine Appearance Clear (Clear) Urine pH 5.5 (4.5-7.5) Ur Specific [place] 1.022 (1.000-1.030) Urine Protein 1+ H (Negative) Urine Glucose (UA) Negative (Negative) Urine Ketones Negative (Negative) Urine Blood Negative (Negative) Urine Nitrite Negative (Negative) Urine Bilirubin Negative (Negative) Urine Urobilinogen Negative (Negative) Ur Leukocyte Esterase Negative (Negative) Urine WBC (Auto) 1-5 (0-5) /hpf Urine RBC (Auto) 0-4 (0-4) /hpf U Hyaline Cast (Auto) 0 (0-5) /lpf U Epithel Cells (Auto) 0-5 (0-5) /lpf Urine Bacteria (Auto) Negative (Negative) Urine Opiates Screen Neg (Neg) Ur Methadone, Qual Neg (Neg) Urine Barbiturates Neg (Neg) Ur Phencyclidine (PCP) Neg (Neg) U Amphetamin/Meth Scrn Neg (Neg) MDMA (Ecstasy) Screen Pos H (Neg) U Benzodiazepines Scrn Neg (Neg) Ur Cocaine Metabolite Neg (Neg) U Marijuana (THC) Screen Neg (Neg) SARS-CoV-2 (PCR) (Negative) Influenza Type A (PCR) (Neg) Influenza Type B (PCR) (Neg) RSV (RT-PCR) (Neg) Administered Medications Bupropion HCl (Bupropion Sr 150 Mg Tabcr) 150 mg PO QAM MAURO Stop: 11/23/21 08:59 Last Admin: 10/24/21 09:06 Dose: 150 mg Documented by: [id number] Enoxaparin Sodium (Enoxaparin Inj 40 Mg/0.4 Ml Syr) 40 mg SQ Q24H MAURO Stop: 11/23/21 07:59 Last Admin: 10/24/21 09:06 Dose: 40 mg Documented by: [id number] Famotidine (Famotidine 20 Mg Tab) 20 mg PO DAILY MAURO Stop: 11/23/21 08:59 Last Admin: 10/24/21 09:06 Dose: 20 mg Documented by: [id number] Ampicillin Sodium/Sulbactam Sodium 1,500 mg/ Sodium Chloride 104 mls @ 200 mls/hr IV Q6H MAURO; Protocol Stop: 10/31/21 10:14 Last Infusion: 10/24/21 11:51 Dose: 0 mls/hr Documented by: [id number] Admin: 10/24/21 11:07 Dose: 200 mls/hr Documented by: [id number] Montelukast Sodium (Montelukast Sodium 10 Mg Tablet) 10 mg PO DAILY MAURO Stop: 11/23/21 08:59 Last Admin: 10/24/21 09:06 Dose: 10 mg Documented by: [id number] Pantoprazole Sodium (Pantoprazole 40 Mg Tab) 40 mg PO BID MAURO Stop: 11/23/21 08:59 Last Admin: 10/24/21 09:06 Dose: 40 mg Documented by: [id number] Tamsulosin HCl (Tamsulosin Hcl 0.4 Mg Cap) 0.4 mg PO Q12 MAURO Stop: 11/23/21 08:59 Last Admin: 10/24/21 09:06 Dose: 0.4 mg Documented by: [id number] Discontinued Medications Albuterol (Albut/Ipratrop 3mg/0.5mg Neb 3 Ml Vial) 3 ml INH NOW STA Stop: 10/23/21 18:20 Last Admin: 10/23/21 19:23 Dose: 3 ml Documented by: [id number] Sodium Chloride (Nss) 500 mls @ 999 mls/hr IV .Q31M STA Stop: 10/23/21 18:49 Last Infusion: 10/23/21 20:03 Dose: 0 mls/hr Documented by: [id number] Admin: 10/23/21 19:24 Dose: 999 mls/hr Documented by: [id number] Pantoprazole Sodium 40 mg/ (Syringe) 10 mls @ 5 mls/min IV NOW ONE Stop: 10/23/21 18:20 Last Admin: 10/23/21 19:25 Dose: 5 mls/min Documented by: [id number] Cefepime HCl (Maxipime) 2,000 mg in 20 mls @ 5 mls/min IV NOW STA; Protocol Stop: 10/23/21 18:22 Last Admin: 10/23/21 19:47 Dose: 5 mls/min Documented by: [id number] Azithromycin 500 mg/ Dextrose 255 mls @ 127.5 mls/hr IV NOW STA Stop: 10/23/21 20:18 Last Infusion: 10/24/21 02:20 Dose: 0 mls/hr Documented by: [id number] Admin: 10/23/21 23:31 Dose: 127.5 mls/hr Documented by: [id number] Vancomycin HCl 2,250 mg/ (Sodium Chloride) 295 mls @ 200 mls/hr IV NOW STA; Protocol Stop: 10/23/21 21:29 Last Infusion: 10/23/21 23:30 Dose: 0 mls/hr Documented by: [id number] Admin: 10/23/21 20:23 Dose: 200 mls/hr Documented by: [id number] Metoclopramide HCl (Metoclopramide Hcl Inj 5 Mg/Ml 2 Ml Vial) 5 mg IV ONE ONE Stop: 10/23/21 18:20 Last Admin: 10/23/21 19:23 Dose: 5 mg Documented by: [id number] Imaging Data Radiologist's Impression: Head CT 10/23/21 23:26 CT OF THE HEAD WITHOUT CONTRAST CLINICAL HISTORY: somnolence, possible change from baseline COMPARISON STUDY: Head CT July 25, 2021. CT DOSE: 853.38 mGy.cm TECHNIQUE: Helical axial images of the head were obtained without IV contrast. Automated exposure control was utilized for the study. A dose lowering technique was utilized adhering to the principles of ALARA. FINDINGS: No acute intracranial hemorrhage, midline shift or mass effect is present. The ventricular system is stable. The basal cisterns are patent. Cerebellar atrophy is again noted. No extra-axial collections are present. There are no findings to suggest acute dural sinus thrombosis or acute territorial infarct. No significant calvarial abnormalities are present. Visualized portions of the sinuses and mastoid air cells are clear. IMPRESSION: No acute intracranial findings. No change in appearance of the brai n. ACT 112: Negative or not required by law. Electronically signed by: Clinton Smith M.D. 10/24/2021 7:37 AM Chest X-Ray 10/23/21 18:20 XR chest 1V portable HISTORY: 60 years-old Male Dyspnea acute shortness of breath COMPARISON: Chest radiograph 07/23/2020 TECHNIQUE: Portable AP view of the chest FINDINGS: Cardiac silhouette is enlarged. Mild bibasilar opacities have slightly progressed from prior. There is no pneumothorax, pleural effusion or overt pulmonary edema. Degenerative changes of the shoulders and spine. Unchanged cortical thickening of the proximal left humerus. IMPRESSION: 1. Cardiomegaly without pulmonary edema. 2. Mild bibasilar opacities suggest atelectasis versus pneumonitis. ACT 112: Negative or not required by law. The above report was generated using voice recognition software. It may contain grammatical, syntax or spelling errors. Electronically signed by: Carl Carmichael M.D. 10/23/2021 7:[address] 10/23/21 23:26 CT OF THE HEAD WITHOUT CONTRAST CLINICAL HISTORY: somnolence, possible change from baseline COMPARISON STUDY: Head CT July 25, 2021. CT DOSE: 853.38 mGy.cm TECHNIQUE: Helical axial images of the head were obtained without IV contrast. Automated exposure control was utilized for the study. A dose lowering technique was utilized adhering to the principles of ALARA. FINDINGS: No acute intracranial hemorrhage, midline shift or mass effect is present. The ventricular system is stable. The basal cisterns are patent. Cerebellar atrophy is again noted. No extra-axial collections are present. There are no findings to suggest acute dural sinus thrombosis or acute territorial infarct. No significant calvarial abnormalities are present. Visualized portions of the sinuses and mastoid air cells are clear. IMPRESSION: No acute intracranial findings. No change in appearance of the brain. ACT 112: Negative or not required by law. Electronically signed by: Clinton Smith M.D. 10/24/2021 7:37 AM Discharge Plan Visit Data Chief Complaint: Shortness of Breath/Dyspnea ED Provider: Choco Slade Discharge Problem: Aspiration pneumonitis, Anemia, Hx of traumatic brain injury Patient Disposition: Admitted As Inpatient Discharge Instructions Interventions: ED Discharge Assessment Last Done: 10/24/21 01:20
[2021-10-23] MEDS ORDERED: METOCLOPRAMIDE HCL INJ 5 MG/ML 2 ML VIAL IV ONE (18:19)
[2021-10-23] MEDS ORDERED: ALBUT/IPRATROP 3MG/0.5MG NEB 3 ML VIAL INH STA (18:19)
[2021-10-23] MEDS ORDERED: AZITHROMYCIN 500 MG in DEXTROSE 5% 250 ML IV STA (18:19)
[2021-10-23] MEDS ORDERED: PANTOprazole 40 MG in SYRINGE 0 ML IV ONE (18:19)
[2021-10-23] MEDS ORDERED: CEFEPIME 2,000 MG/20 ML VIAL IV STA (18:19)
[2021-10-23] MEDS ORDERED: SODIUM CHLORIDE 0.9% 500 ML IV STA (18:19)
--- NOTE | 2021-10-23 19:24 | XRay Report ---
XR chest 1V portable HISTORY: 60 years-old Male Dyspnea acute shortness of breath COMPARISON: Chest radiograph 07/23/2020 TECHNIQUE: Portable AP view of the chest FINDINGS: Cardiac silhouette is enlarged. Mild bibasilar opacities have slightly progressed from prior. There i s no pneumothorax, pleural effusion or overt pulmonary edema. Degenerative changes of the shoulders a nd spine. Unchanged cortical thickening of the proximal left humerus. IMPRESSION: 1. Cardiomegaly without pulmonary edema. 2. Mild bibasilar opacities suggest atelectasis versus pneumonitis. ACT 112: Negative or not required by law. The above report was generated using voice recognition software. It may contain grammatical, syntax o r spelling errors. Electronically signed by: Carl Carmichael M.D. 10/23/2021 7:23 PM
[2021-10-23] MEDS ORDERED: VANCOMYCIN HCL IV STA (20:01)
[2021-10-23] MEDS ORDERED: VANCOMYCIN CONSULT ACTIVE PRN (20:01)
[2021-10-23] MEDS ORDERED: SODIUM CHLORIDE 0.9% IV STA (20:01)
[2021-10-23 20:29] LABS: Influenza A virus by PCR Negative (Neg); Influenza B virus by PCR Negative (Neg); RSV by PCR Negative (Neg); SARS CoV2 RNA(COVID-19) InHosp NEGATIVE (Negative)
[2021-10-23 20:29] LABS: Basophils # (auto) 0.03 K/uL (0-0.2); Basophils % (auto) 0.3 %; Eosinophils # (auto) 0.37 K/uL (0-0.5); Eosinophils % (auto) 3.8 %; Hematocrit (blood only) 39.1 % (42-52); Hemoglobin 13.3 g/dL (14.0-18.0); Immature Granulocytes # (auto) 0.04 K/uL (0.00-0.02); Immature Granulocytes % (auto) 0.4 %; Lymphocytes # (auto) 1.55 K/uL (1.2-3.4); Mean Corpuscular Hemoglobin 31.3 pg (25-34); Mean Platelet Volume 9.7 fL (7.4-10.4); Monocytes # (auto) 0.82 K/uL (0.11-0.59); Monocytes % (auto) 8.5 %; Neutrophils # (auto) 6.85 K/uL (1.4-6.5); Platelet Count 247 K/uL (130-400); RDW Coefficient of Variation 14.2 % (11.5-14.5); RDW Standard Deviation 47.7 fL (36.4-46.3); Red Blood Count 4.25 M/uL (4.7-6.1); White Blood Count 9.66 K/uL (4.8-10.8)
[2021-10-23 20:44] LABS: Troponin I < 0.03 ng/ml (0-0.04)
[2021-10-23 20:48] LABS: Alanine Aminotransferase 18 U/L (7-52); Albumin Globulin Ratio 1.1 (0.9-2); Albumin Level 3.5 gm/dl (3.4-5.0); Anion Gap 8 (3-11); BUN Creatinine Ratio 26.8 (10-20); Bilirubin,Total 0.5 mg/dl (0.2-1.0); Blood Urea Nitrogen 19 mg/dl (6-23); Calcium 8.7 mg/dl (8.5-10.1); Carbon Dioxide 25 mmol/L (21-32); Chloride 104 mmol/L (98-107); Est GFR (African American) 116.5 ml/min; Est GFR (Non-African American) 100.6 ml/min; Globulin 3.3 gm/dl (2.5-4.0); Glucose 90 mg/dl (70-99); Sodium 137 mmol/L (136-145); Total Protein 6.8 gm/dl (6.0-8.3)
[2021-10-23 21:30] LABS: Potassium 3.7 mmol/L (3.5-5.1)
[2021-10-23 22:27] LABS: Appearance Urine Clear (Clear); Bacteria Urine Automated Negative (Negative); Bilirubin Urine Negative (Negative); Blood Urine Negative (Negative); Cast Urine Automated 0 /lpf (0-5); Color Urine Yellow; Epithelial Cell Urine Auto 0-5 /lpf (0-5); Glucose Urine UA Negative (Negative); Ketones Urine Negative (Negative); Leukocyte Esterase Urine Negative (Negative); Nitrite Urine Negative (Negative); Protein Urine 1+ (Negative); RBC Urine Automated 0-4 /hpf (0-4); Specific Gravity Urine 1.022 (1.000-1.030); Urobilinogen Urine Negative (Negative); pH Urine 5.5 (4.5-7.5)
--- NOTE | 2021-10-23 23:20 | History & Physical Report ---
Date of Service October 23, 2021 Assessment & Plan (1) Dyspnea: Plan: 60 y/o M w/ PMHx of TBI and resultant chronic aspiration pneumonia who presents from [facility] for 2-3 days of dyspnea. His admission is complicated by somnolence which appears to be different from baseline. Dyspnea - Exam somewhat suggestive of hypervolemia w/ crackles, 3+ BLE and possible JVD. Checking BNP and will check echo if elevated. Does have hx of pulmonary fibrosi s. - Lower suspicion for pneumonia w/o leukocytosis or fever. Discontinuing antibiotics. Checking procalc. - Saturating well on room air. Breathing comfortably. Defer diuresis vs inhalers while awaiting further workup. -Check VBG -Check PA-lateral CXR in AM -Albuterol HFA PRN Somnolence, since entire time at [facility] - Unclear if new from baseline, but appears so after discussion w/ nurse at [facility]; Patient is conversational and fully awake at baseline. Checking head CT, VBG (to r/o hypercarbia), and UDS. Check TSH. - Considered normal fatigue vs baseline from TBI vs toxic-metabolic encephalopathy. Also considered medications though per chart review has not received any sedating medications in the ED other than Reglan. Patient was somnolent prior to the Reglan. - Defer PT/OT evals for now - Hold home gabapentin Reported chest pain, prior to admission - Repeat ecg in AM. Ecg w/o ischemic changes. Trend trop. TBI (traumatic brain injury) Old injury. Resultant dysphagia and expressive aphasia. Aspiration precautions BPH (benign prostatic hyperplasia) - Continue home regimen Gastroesophageal reflux - Continue home regimen FEN/GI: low Na diet. No fluids. ppx: lovenox sq code: full dispo: med/surg. when ready, dispo would be back to [facility] (2) TBI (traumatic brain injury): (3) Expressive aphasia: (4) BPH (benign prostatic hyperplasia): (5) Pulmonary fibrosis: (6) Gastroesophageal reflux: (7) Chronic pulmonary aspiration: (8) Engages in vaping: (9) Impulsive personality disorder: History of Present Illness Chief Complaint: dyspnea Primary Care Provider: Aziza Coe MD 60 y/o M w/ PMHx of TBI and resultant dysarthria, dysphagia, and recurrent aspiration concerns who presents from [facility] for 1.5 wk of severe cough, 2 days of chest pain, and 2-3 days of dyspnea. He had declined inhaler treatment because did not understand why it was needed. Patient had cxr this morning that was read as left infra hilar patchy density suggestive of pneumonia. Flaquito Buchanan called on-call [facility] PCP who recommended ED eval. Per nurse, daughter was at bedside earlier and did not have concerns about mentation even though patient was similarly somnolent. Patient has been somnolent, intermittently waking up w/ simple responses such as asking for blanket. History was limited by patient's somnolence. Patient denies all complaints, but reliability of this is questionable. No family available at bedside. Called [facility] Buch[facility] and spoke to nurse who provided the information above. ED course: Vanc, cefepime, azithro, 500mL NSS bolus, albuterol. No leukocytosis or fever. Allergies Allergy/AdvReac Type Severity Reaction Status Date / Time mupirocin [From Bactroban] Allergy Verified 09/18/21 08:53 Home Medications Medication Instructions Recorded Confirmed Type calcium carbonate 500 mg calcium 500 mg PO QAM 04/02/20 10/23/21 History (1,250 mg) tablet (Oyster Shell Calcium) Wheelchair (Manual) #1 ea 04/04/20 07/22/21 Rx ascorbate calcium (vitamin C) 500 500 mg PO QID #120 tab 09/20/20 10/23/21 Rx mg tablet apolinar.stocking,knee,reg,smal #12 ea 11/02/20 07/22/21 Rx (T.E.D. Anti-Embolism Stocking) loratadine 10 mg tablet 10 mg PO DAILY #30 tab 12/13/20 10/23/21 Rx pantoprazole 40 mg tablet,delayed 40 mg PO BID #60 tab 12/28/20 10/23/21 Rx release bupropion HCl 150 mg tablet,12 hr 150 mg PO QAM #90 ea 01/30/21 10/23/21 Rx sustained-release (Wellbutrin SR) famotidine 20 mg tablet (Acid 20 mg PO DAILY #90 tab 01/30/21 10/23/21 Rx Dental Lab Technician (famotidine)) montelukast 10 mg tablet 10 mg PO DAILY 07/22/21 10/23/21 History (Singulair) sodium chloride 0.65 % nasal spray 1 spray INTRANASAL BID PRN 07/22/21 10/23/21 History aerosol (Saline Mist) fluticasone propionate 50 2 spray INTNAS QAM #16 g 08/27/21 10/23/21 Rx mcg/actuation nasal spray,suspension (Allergy Relief (fluticasone)) guaifenesin 600 mg tablet, 600 mg PO Q12H PRN #60 tab 09/23/21 10/23/21 Rx extended release 12 hr (Mucinex) gabapentin 300 mg capsule 300 mg PO BID #60 cap 10/14/21 10/23/21 Rx aluminum-mag hydroxide-simethicone 5 ml PO QID PRN #30 ml 10/23/21 10/23/21 Rx 400 mg-400 mg-40 mg/5 mL oral susp (Mylanta Maximum Strength) tamsulosin 0.4 mg capsule (Flomax) 0.4 mg PO Q12 10/23/21 10/23/21 History Past Med/Surg History Medical History (Updated 10/23/21 @ 23:55 by Ross Flores MD) Arthritis Aspiration pneumonitis Bilateral lower extremity edema BPH (benign prostatic hyperplasia) BPH with obstruction/lower urinary tract symptoms Chronic cough Chronic pulmonary aspiration Critical illness myopathy Depression Engages in vaping Expressive aphasia FH: total knee replacement 2015 GI bleed Hernia, hiatal History of drug abuse History of tobacco abuse Impulsive personality disorder Iron deficiency anemia Morbid obesity due to excess calories MRSA infection Neuropathy PSVT (paroxysmal supraventricular tachycardia) Pulmonary fibrosis TBI (traumatic brain injury) Surgical History H/O total knee replacement History of bursectomy Right elbow History of surgical procedure ankle fracture treatment Family History Father Heart disease Denies family history of Ovarian cancer Prostate cancer Diabetes Myocardial infarction Breast cancer Colorectal cancer Hypertension Social History Smoking Status: Unknown if ever smoked Tobacco Type: Cigarettes Number of Years Since Quit: 34; Second Hand Exposure: No; Hx Alcohol Use: No Hx Substance Use: No Preferred Language: Argentine Communication Ability: Impaired Venetian Blind Tape Cutter Required: No Beliefs That Will Affect Care: None marital status: Current Living Situation: Alf Current Living Situation Comment: [place] current occupational status: disabled Feels Safe at Home: Yes Safety Concerns: Feels Safe At This Time caffeine: Yes (coffee ) Dental Care, Regularly: Yes Physical Activity Frequency: 3-4 Times per Week Seatbelt Use: sometimes Sunscreen Use: No Assistive Devices: Walker Review of Systems Review of Systems: Unobtainable due to cognitive status (Shakes head to deny all complaints including pain, dyspnea, chest pain. Questionable reliability.) Physical Exam Physical Exam: General: Knows he is at [facility]. NAD. Somnolent. Difficult to arouse. Woke up briefly enough to nod/shake head and state he was at [facility]. HEENT: Atraumatic, normocephalic. PERRL. Pupils are small, not blown. Possible JVD on left. Pulm: CTAB. -wheezes, -rales, -rhonchi. No respiratory distress. Cardiac: RRR, -mrg. Radial pulses intact and symmetrical. 3+ BLE, wearing compression stockings Abdominal: Nontender, nondistended, soft. Neuro: Normal and symmetric rehabilitation teacher strength. Results & Data Results & Data ([facility]) Vital Signs (Past 12 Hours) Vital Signs Vitals reviewed. Saturating 94-100 on room air. Temp Pulse Pulse Resp BP BP Pulse Ox 10/23/21 22:13 36.7 C 70 16 125/86 10/23/21 20:01 74 100 10/23/21 19:45 70 16 140/82 100 10/23/21 17:42 36.4 C L 74 20 146/90 H 97 Laboratory Results Labs: wbc 9.66. Hb 13.3L. BMP. K 3.7. BUN/Cr 26.8H. covid, flu, rsv neg. BC pending. 10/23/21 20:05 10/23/21 21:02 Cardiac Enzymes 10/23/21 10/23/21 Range/Units 20:05 21:02 AST 18 (13-39) U/L Troponin I < 0.03 (0-0.04) ng/ml CBC 10/23/21 Range/Units 20:05 WBC 9.66 (4.8-10.8) K/uL RBC 4.25 L (4.7-6.1) M/uL Hgb 13.3 L (14.0-18.0) g/dL Hct 39.1 L (42-52) % Plt Count 247 (130-400) K/uL Neut # (Auto) 6.85 H (1.4-6.5) K/uL Lymph # (Auto) 1.55 (1.2-3.4) K/uL [place] # (Auto) 0.82 H (0.11-0.59) K/uL Eos # (Auto) 0.37 (0-0.5) K/uL Baso # (Auto) 0.03 (0-0.2) K/uL Comprehensive Metabolic Panel 10/23/21 10/23/21 Range/Units 20:05 21:02 Sodium 137 (136-145) mmol/L Potassium 3.7 (3.5-5.1) mmol/L Chloride 104 (98-107) mmol/L Carbon Dioxide 25 (21-32) mmol/L BUN 19 (6-23) mg/dl Creatinine 0.71 (0.6-1.4) mg/dl Glucose 90 (70-99) mg/dl Calcium 8.7 (8.5-10.1) mg/dl AST 18 (13-39) U/L ALT 18 (7-52) U/L Alkaline Phosphatase 56 (34-104) U/L Total Protein 6.8 (6.0-8.3) gm/dl Albumin 3.5 (3.4-5.0) gm/dl Intake and Output 10/23/21 10/23/21 10/24/21 14:59 22:59 06:59 Intake Total 500 / 500 Balance 500 / 500 Intake: IV 500 / 500 Sodium Chloride 0.9% 500 ml @ 500 / 500 999 mls/hr IV .Q31M STA Rx#: [id number] Diagnostic Findings Chest X-Ray 10/23/21 18:20 XR chest 1V portable HISTORY: 60 years-old Male Dyspnea acute shortness of breath COMPARISON: Chest radiograph 07/23/2020 TECHNIQUE: Portable AP view of the chest FINDINGS: Cardiac silhouette is enlarged. Mild bibasilar opacities have slightly progressed from prior. There is no pneumothorax, pleural effusion or overt pulmonary edema. Degenerative changes of the shoulders and spine. Unchanged cortical thickening of the proximal left humerus. IMPRESSION: 1. Cardiomegaly without pulmonary edema. 2. Mild bibasilar opacities suggest atelectasis versus pneumonitis. ACT 112: Negative or not required by law. The above report was generated using voice recognition software. It may contain grammatical, syntax or spelling errors. Electronically signed by: Carl Carmichael M.D. 10/23/2021 7:23 PM ECG Additional Comments: Per my read: ecg NSR 79 w/ PVCs. Normal axis and intervals. No ST-T changes. Code Status & VTE Plan Code Status full VTE Prophylaxis Plan VTE Prophylaxis will be ordered: Yes Supervising Physician Co-Signing Physician Notes Patient seen and examined, chart reviewed, case discussed with Dr. Flores and I agree with the assessment and plan as above. Patient presents from [facility] with reported dyspnea, CXR from outside reported to show left sided PNA. Patient is afebrile, HD stable, no cough/SOB/respiratory distress Workup thus far is NEGATIVE for leukocytosis. No obvious consolidation on CXR, has some airspace disease in bilateral bases. ?chronic change vs aspiration pneumonitis Patient is somnolent. He opens eyes to verbal stimuli and follows some commands. No verbal response Skin - intact HEENT - NC/AT, PERRL, MMM, Neck supple Heart - +S1/S2, regular, no m/r/g Lungs - Coarse breath sounds bilaterally with fine crackles present in bilateral bases. No wheezing. Good air flow Abd - +BS, soft, NT/ND Ext- +edema Neuro - nonfocal. Somnolence Labs and images reviewed Assessment/Plan -Uncertain of diagnosis of PNA as patient is afebrile, no leukocytosis, no infiltrate on CXR. Will check Procalcitonin, repeat CXR in AM -Check BNP -Check VBG - patient refused blood draw, will attempt to send with next troponin at 02:30 -Remainder as above CT Head is NEGATIVE for acute intracranial process Resident Activity Tracking Resident Involvement: Resident Care Provided Care Provided: Adult Hospital Medicine
[2021-10-24 01:03] LABS: Amphetamines+Metham, Urine Neg (Neg); Barbiturates, Urine Neg (Neg); Benzodiazepine, Urine Neg (Neg); Cocaine, Urine Neg (Neg); MDMA (Ecstacy), Urine Pos (Neg); Methadone, Urine Neg (Neg); Opiate, Urine Neg (Neg); Phencyclidine, Urine Neg (Neg)
[2021-10-24] MEDS ORDERED: NITROGLYCERIN SL 0.4 MG/TAB TAB SL PRN (01:19)
[2021-10-24] MEDS ORDERED: POLYETHYLENE (MIRALAX) 17 GM PACK PO PRN (01:19)
[2021-10-24] MEDS ORDERED: ACETAMINOPHEN 325 MG TAB PO PRN (01:19)
--- NOTE | 2021-10-24 02:20 | Billing Data ---
Date of Service October 23, 2021 Coding Level of Care Code INT OBSERVATION CARE 70M LVL 3
[2021-10-24] MEDS ORDERED: ALBUTEROL HFA 8 GM INHALER INH PRN (02:23)
[2021-10-24 02:59] LABS: Basophils # (auto) 0.04 K/uL (0-0.2); Basophils % (auto) 0.6 %; Eosinophils % (auto) 5.8 %; Hematocrit (blood only) 39.1 % (42-52); Hemoglobin 12.9 g/dL (14.0-18.0); Immature Granulocytes # (auto) 0.03 K/uL (0.00-0.02); Immature Granulocytes % (auto) 0.4 %; Lymphocytes # (auto) 1.43 K/uL (1.2-3.4); Lymphocytes % (auto) 20.6 %; Mean Corpuscular Hemoglobin 30.9 pg (25-34); Mean Corpuscular Volume 93.5 fL (80-100); Mean Platelet Volume 9.4 fL (7.4-10.4); Monocytes # (auto) 0.78 K/uL (0.11-0.59); Monocytes % (auto) 11.2 %; Neutrophils # (auto) 4.27 K/uL (1.4-6.5); Neutrophils % (auto) 61.4 %; Platelet Count 238 K/uL (130-400); RDW Coefficient of Variation 14.5 % (11.5-14.5); RDW Standard Deviation 48.6 fL (36.4-46.3); Red Blood Count 4.18 M/uL (4.7-6.1); White Blood Count 6.95 K/uL (4.8-10.8)
[2021-10-24 03:02] LABS: Base Excess VBG 3.4 mEq/L; Oxygen Saturation VBG 62.8 %; pH VBG 7.39 (7.36-7.41)
[2021-10-24 03:23] LABS: Troponin I < 0.03 ng/ml (0-0.04)
[2021-10-24 04:08] LABS: Alanine Aminotransferase 16 U/L (7-52); Albumin Globulin Ratio 1.1 (0.9-2); Albumin Level 3.4 gm/dl (3.4-5.0); Alkaline Phosphatase 56 U/L (34-104); Anion Gap 8 (3-11); Aspartate Aminotransferase 17 U/L (13-39); Bilirubin,Total 0.6 mg/dl (0.2-1.0); Blood Urea Nitrogen 16 mg/dl (6-23); Calcium 8.5 mg/dl (8.5-10.1); Carbon Dioxide 28 mmol/L (21-32); Chloride 105 mmol/L (98-107); Creatinine Clr Calc Pharmacy 130.1 ml/min; Est GFR (Non-African American) 95.7 ml/min; Glucose 93 mg/dl (70-99); Magnesium 1.8 mg/dl (1.7-2.4); Potassium 3.5 mmol/L (3.5-5.1); Sodium 141 mmol/L (136-145); Total Protein 6.4 gm/dl (6.0-8.3)
--- NOTE | 2021-10-24 07:38 | CT Scan Report ---
CT OF THE HEAD WITHOUT CONTRAST CLINICAL HISTORY: somnolence, possible change from baseline COMPARISON STUDY: Head CT July 25, 2021. CT DOSE: 853.38 mGy.cm TECHNIQUE: Helical axial images of the head were obtained without IV contrast. Automated exposure con trol was utilized for the study. A dose lowering technique was utilized adhering to the principles o f ALARA. FINDINGS: No acute intracranial hemorrhage, midline shift or mass effect is present. The ventricular system is stable. The basal cisterns are patent. Cerebellar atrophy is again noted. No extra-axial co llections are present. There are no findings to suggest acute dural sinus thrombosis or acute territo rial infarct. No significant calvarial abnormalities are present. Visualized portions of the sinuses and mastoid air cells are clear. IMPRESSION: No acute intracranial findings. No change in appearance of the brain. ACT 112: Negative or not required by law. Electronically signed by: Clinton Smith M.D. 10/24/2021 7:37 AM
[2021-10-24] MEDS: PANTOprazole 40 MG TAB PO SCH ×2 (09:06→21:25)
[2021-10-24] MEDS: TAMSULOSIN HCL 0.4 MG CAP PO SCH ×2 (09:06→21:25)
[2021-10-24] MEDS: MONTELUKAST SODIUM 10 MG TABLET PO SCH (09:06)
[2021-10-24] MEDS: ENOXAPARIN INJ 40 MG/0.4 ML SYR SQ SCH (09:06)
[2021-10-24] MEDS: FAMOTIDINE 20 MG TAB PO SCH (09:06)
[2021-10-24] MEDS: buPROPion SR 150 MG TABCR PO SCH (09:06)
--- NOTE | 2021-10-24 09:57 | XRay Report ---
XR chest 2V PA/lateral CLINICAL HISTORY: Cough. Evaluate for pneumonia. COMPARISON STUDY: Chest radiograph October 23, 2021. FINDINGS: Lung volumes are normal. No pneumothorax or pleural effusion is noted. The appearance of th e chest is unchanged. Right basilar opacity is unchanged. Cardiomediastinal silhouette is stable. No evidence for pulmonary edema. Mild reticulonodular interstitial thickening is unchanged. IMPRESSION: No change in appearance of the chest. Mild right basilar opacity which favors atelectasi s. ACT 112: Negative or not required by law. Electronically signed by: Clinton Smith M.D. 10/24/2021 9:56 AM
[2021-10-24] MEDS: AMPICILLIN/SULBACTAM SOD 1,500 MG in 0.9 % SODIUM CHLORIDE 100 ML IV SCH ×3 (11:07→22:14)
[2021-10-24] MEDS ORDERED: ALUMINUM/MAGNESIUM SUSP 30 ML UDC PO ONE (15:13)
[2021-10-24] MEDS: FLUTICASONE/VILANTEROL 200/25MCG 14 PUFFS/INHALER INH SCH (16:10)
[2021-10-24] MEDS ORDERED: SODIUM CHLORIDE 0.65% NA SOLN 45 ML (OCEAN) PRN (16:21)
[2021-10-24] MEDS ORDERED: guaiFENesin 600 MG TABCR PO PRN (16:21)
[2021-10-24] MEDS ORDERED: ALUMINUM/MAGNESIUM/SIMETH (MAALOX MAX) 30 ML UDC PO PRN (16:21)
[2021-10-24] MEDS ORDERED: methylPREDNISolone 60 MG in SYRINGE 0 ML IV SCH ×2 (16:30→16:45)
--- NOTE | 2021-10-24 16:30 | Hospitalist Progress Note ---
Date of Service October 24, 2021 Assessment & Plan (1) Dyspnea: Plan: 60 y/o M w/ PMHx of TBI and resultant chronic aspiration pneumonia who presents from [facility] for 2-3 days of dyspnea. His admission is complicated by somnolence which appears to be different from baseline. #Dyspnea secondary to COPD exacerbation sec to aspiration pneumonia 1-1/2-week history of progressively worsening dyspnea and cough with acute worsening 2 to 3 days ago. Questionable associated chest pain.Chest x-ray consistent with mild bibasilar opacities suggestive of atelectasis versus pneumonitis. Given his smoking history, questionable compliance outpatient medication regimen suspect COPD exacerbation in conjunction with known silent aspiration. Therefore will provide coverage with Unasyn and transition to p.o. Augmentin. -Unasyn plan to convert to p.o. Augmentin tomorrow -Monitor vitals -As needed O2 as needed -Incentive spirometer, flutter valve, chest PT -Continue home inhalers, allergy medication, and intranasal corticosteroids. -Pulse steroids 60 mg daily iv solumedrol q day plan to convert to P/O tomorrow -Continue to follow cultures/CBC #Electrolyte derangements Daily BMP replete as indicated #Chest pain Reported per EMS and patient on admission has not had any others significant chest pain, EKG negative, troponins negative. Suspect related to underlying cough #Smoking history Patient with a longstanding smoking history and current active smoker. Suspect that this is the underlying etiology of his current presentation. Encouraged the patient to stop smoking, will provide nicotine patch -Nicotine patch #TBI (traumatic brain injury) Old injury. Resultant dysphagia and expressive aphasia. Aspiration precautions -Patient evaluated by speech today, he is well known to them and known to chronically silently aspirate. #BPH (benign prostatic hyperplasia) - Continue home regimen #Gastroesophageal reflux - Continue home regimen - maalox prn given for worsening of symptoms. FEN/GI: low Na diet. No fluids. ppx: lovenox sq code: full dispo: Med/ Surg Dispo [facility] FENa: Low-sodium diet Code Status: Full code DVT PPX: Lovenox PT/OT: Consulted Case Management: Consulted Dispo: MedSurg ultimately back to [facility] Elias Li MD PGY 3, FCM This chart was completed utilizing [email or web address] voice recognition software. Grammatical errors, random word insertions, pronoun errors, and in complete sentences are an occasional consequence of the system. Any questions or concerns about the content, text, or information contained within the body of this dictation should be addressed directly to the physician for clarification. (2) TBI (traumatic brain injury): (3) Expressive aphasia: (4) BPH (benign prostatic hyperplasia): (5) Pulmonary fibrosis: (6) Gastroesophageal reflux: (7) Chronic pulmonary aspiration: (8) Engages in vaping: (9) Impulsive personality disorder: Admission and Anticipated Discharge Date Admission Date: October 23, 2021 Supervising Physician Co-Signing Physician Notes Resident Physician Supervision Note: I independently interviewed and examined the patient and verified the araujo history and physical, reviewed labs and image studies and agree with resident Dr. Li findings and care plan. Subjective Patient lying in bed this morning in no acute distress. Patient does have difficulties communicating secondary to his dysarthria however was able to communicate using thumbs up and thumbs down as well as other coping strategies. Patient denied any acute symptoms. Reported that his pain was well controlled, reported that he did not feel sick, stated that he was voiding, stooling and tolerating his diet. All questions were answered, acute concerns related to dyspnea. 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, normal S1, normal S2, 2+ pedal edema, negative calf tenderness Respiratory: Positive wheezes, positive rhonchi, no significant increased work of breathing GI: Soft nontender nondistended Neuro: Alert and oriented x4 Psych: Calm and cooperative with interview Results & Data Results & Data ([facility]) Vital Signs (Past 12 Hours) Vital Signs Temp Pulse Resp BP Pulse Ox 10/24/21 05:16 36.6 C 60 14 143/78 H 95 Laboratory Results 10/24/21 10/24/21 10/24/21 Range/Units 08:45 02:49 02:49 WBC 6.95 (4.8-10.8) K/uL RBC 4.18 L (4.7-6.1) M/uL Hgb 12.9 L (14.0-18.0) g/dL Hct 39.1 L (42-52) % MCV 93.5 (80-100) fL MCH 30.9 (25-34) pg MCHC 33.0 (32-36) g/dL RDW Std Deviation 48.6 H (36.4-46.3) fL RDW Coeff of Hillary 14.5 (11.5-14.5) % Plt Count 238 (130-400) K/uL MPV 9.4 (7.4-10.4) fL Immature Gran % (Auto) 0.4 % Neut % (Auto) 61.4 % Lymph % (Auto) 20.6 % Hanson % (Auto) 11.2 % Eos % (Auto) 5.8 % Baso % (Auto) 0.6 % Neut # (Auto) 4.27 (1.4-6.5) K/uL Lymph # (Auto) 1.43 (1.2-3.4) K/uL Hanson # (Auto) 0.78 H (0.11-0.59) K/uL Eos # (Auto) 0.40 (0-0.5) K/uL Baso # (Auto) 0.04 (0-0.2) K/uL Immature Gran # (Auto) 0.03 H (0.00-0.02) K/uL VBG pH VBG pCO2 VBG pO2 VBG HCO3 VBG O2 Saturation VBG Base Excess Barometric Pressure Sodium 141 (136-145) mmol/L Potassium 3.5 (3.5-5.1) mmol/L Chloride 105 (98-107) mmol/L Carbon Dioxide 28 (21-32) mmol/L Anion Gap 8 (3-11) BUN 16 (6-23) mg/dl Creatinine 0.80 (0.6-1.4) mg/dl Est Cr Clr Drug Dosing 130.1 Est GFR ( Amer) 111.0 ml/min Est GFR (Non-Af Amer) 95.7 ml/min BUN/Creatinine Ratio 20.0 (10-20) Glucose 93 (70-99) mg/dl Calcium 8.5 (8.5-10.1) mg/dl Magnesium 1.8 (1.7-2.4) mg/dl Total Bilirubin 0.6 (0.2-1.0) mg/dl AST 17 (13-39) U/L ALT 16 (7-52) U/L Alkaline Phosphatase 56 (34-104) U/L Troponin I < 0.03 < 0.03 (0-0.04) ng/ml B-Natriuretic Peptide (0-100) pg/ml Total Protein 6.4 (6.0-8.3) gm/dl Albumin 3.4 (3.4-5.0) gm/dl Globulin 3.0 (2.5-4.0) gm/dl Albumin/Globulin Ratio 1.1 (0.9-2) Procalcitonin (0-0.5) ng/ml TSH (0.300-4.500) uIu/ml Urine Color Urine Appearance (Clear) Urine pH (4.5-7.5) Ur Specific Colony (1.000-1.030) Urine Protein (Negative) Urine Glucose (UA) (Negative) Urine Ketones (Negative) Urine Blood (Negative) Urine Nitrite (Negative) Urine Bilirubin (Negative) Urine Urobilinogen (Negative) Ur Leukocyte Esterase (Negative) Urine WBC (Auto) (0-5) /hpf Urine RBC (Auto) (0-4) /hpf U Hyaline Cast (Auto) (0-5) /lpf U Epithel Cells (Auto) (0-5) /lpf Urine Bacteria (Auto) (Negative) Urine Opiates Screen (Neg) Ur Methadone, Qual (Neg) Urine Barbiturates (Neg) Ur Phencyclidine (PCP) (Neg) U Amphetamin/Meth Scrn (Neg) Urine MDEA MDMA (Ecstasy) Screen (Neg) MDMA Urine MDMA U Benzodiazepines Scrn (Neg) Ur Cocaine Metabolite (Neg) U Marijuana (THC) Screen (Neg) SARS-CoV-2 (PCR) (Negative) Influenza Type A (PCR) (Neg) Influenza Type B (PCR) (Neg) RSV (RT-PCR) (Neg) 10/24/21 10/23/21 10/23/21 Range/Units 02:49 23:48 22:04 WBC (4.8-10.8) K/uL RBC (4.7-6.1) M/uL Hgb (14.0-18.0) g/dL Hct (42-52) % MCV (80-100) fL MCH (25-34) pg MCHC (32-36) g/dL RDW Std Deviation (36.4-46.3) fL RDW Coeff of Hillary (11.5-14.5) % Plt Count (130-400) K/uL MPV (7.4-10.4) fL Immature Gran % (Auto) % Neut % (Auto) % Lymph % (Auto) % Hanson % (Auto) % Eos % (Auto) % Baso % (Auto) % Neut # (Auto) (1.4-6.5) K/uL Lymph # (Auto) (1.2-3.4) K/uL Hanson # (Auto) (0.11-0.59) K/uL Eos # (Auto) (0-0.5) K/uL Baso # (Auto) (0-0.2) K/uL Immature Gran # (Auto) (0.00-0.02) K/uL VBG pH 7.39 VBG pCO2 50 VBG pO2 34 VBG HCO3 29 VBG O2 Saturation 62.8 VBG Base Excess 3.4 Barometric Pressure 731.7 Sodium (136-145) mmol/L Potassium (3.5-5.1) mmol/L Chloride (98-107) mmol/L Carbon Dioxide (21-32) mmol/L Anion Gap (3-11) BUN (6-23) mg/dl Creatinine (0.6-1.4) mg/dl Est Cr Clr Drug Dosing Est GFR ( Amer) ml/min Est GFR (Non-Af Amer) ml/min BUN/Creatinine Ratio (10-20) Glucose (70-99) mg/dl Calcium (8.5-10.1) mg/dl Magnesium (1.7-2.4) mg/dl Total Bilirubin (0.2-1.0) mg/dl AST (13-39) U/L ALT (7-52) U/L Alkaline Phosphatase (34-104) U/L Troponin I (0-0.04) ng/ml B-Natriuretic Peptide (0-100) pg/ml Total Protein (6.0-8.3) gm/dl Albumin (3.4-5.0) gm/dl Globulin (2.5-4.0) gm/dl Albumin/Globulin Ratio (0.9-2) Procalcitonin (0-0.5) ng/ml TSH 1.890 (0.300-4.500) uIu/ml Urine Color Urine Appearance (Clear) Urine pH (4.5-7.5) Ur Specific Colony (1.000-1.030) Urine Protein (Negative) Urine Glucose (UA) (Negative) Urine Ketones (Negative) Urine Blood (Negative) Urine Nitrite (Negative) Urine Bilirubin (Negative) Urine Urobilinogen (Negative) Ur Leukocyte Esterase (Negative) Urine WBC (Auto) (0-5) /hpf Urine RBC (Auto) (0-4) /hpf U Hyaline Cast (Auto) (0-5) /lpf U Epithel Cells (Auto) (0-5) /lpf Urine Bacteria (Auto) (Negative) Urine Opiates Screen (Neg) Ur Methadone, Qual (Neg) Urine Barbiturates (Neg) Ur Phencyclidine (PCP) (Neg) U Amphetamin/Meth Scrn (Neg) Urine MDEA Pending MDMA (Ecstasy) Screen (Neg) MDMA Pending Urine MDMA Pending U Benzodiazepines Scrn (Neg) Ur Cocaine Metabolite (Neg) U Marijuana (THC) Screen (Neg) SARS-CoV-2 (PCR) (Negative) Influenza Type A (PCR) (Neg) Influenza Type B (PCR) (Neg) RSV (RT-PCR) (Neg) 10/23/21 10/23/21 10/23/21 Range/Units 22:04 22:04 21:02 WBC (4.8-10.8) K/uL RBC (4.7-6.1) M/uL Hgb (14.0-18.0) g/dL Hct (42-52) % MCV (80-100) fL MCH (25-34) pg MCHC (32-36) g/dL RDW Std Deviation (36.4-46.3) fL RDW Coeff of Hillary (11.5-14.5) % Plt Count (130-400) K/uL MPV (7.4-10.4) fL Immature Gran % (Auto) % Neut % (Auto) % Lymph % (Auto) % Hanson % (Auto) % Eos % (Auto) % Baso % (Auto) % Neut # (Auto) (1.4-6.5) K/uL Lymph # (Auto) (1.2-3.4) K/uL Hanson # (Auto) (0.11-0.59) K/uL Eos # (Auto) (0-0.5) K/uL Baso # (Auto) (0-0.2) K/uL Immature Gran # (Auto) (0.00-0.02) K/uL VBG pH VBG pCO2 VBG pO2 VBG HCO3 VBG O2 Saturation VBG Base Excess Barometric Pressure Sodium (136-145) mmol/L Potassium 3.7 (3.5-5.1) mmol/L Chloride (98-107) mmol/L Carbon Dioxide (21-32) mmol/L Anion Gap (3-11) BUN (6-23) mg/dl Creatinine (0.6-1.4) mg/dl Est Cr Clr Drug Dosing Est GFR ( Amer) ml/min Est GFR (Non-Af Amer) ml/min BUN/Creatinine Ratio (10-20) Glucose (70-99) mg/dl Calcium (8.5-10.1) mg/dl Magnesium (1.7-2.4) mg/dl Total Bilirubin (0.2-1.0) mg/dl AST 18 (13-39) U/L ALT (7-52) U/L Alkaline Phosphatase 56 (34-104) U/L Troponin I (0-0.04) ng/ml B-Natriuretic Peptide (0-100) pg/ml Total Protein (6.0-8.3) gm/dl Albumin (3.4-5.0) gm/dl Globulin (2.5-4.0) gm/dl Albumin/Globulin Ratio (0.9-2) Procalcitonin (0-0.5) ng/ml TSH (0.300-4.500) uIu/ml Urine Color Yellow Urine Appearance Clear (Clear) Urine pH 5.5 (4.5-7.5) Ur Specific Colony 1.022 (1.000-1.030) Urine Protein 1+ H (Negative) Urine Glucose (UA) Negative (Negative) Urine Ketones Negative (Negative) Urine Blood Negative (Negative) Urine Nitrite Negative (Negative) Urine Bilirubin Negative (Negative) Urine Urobilinogen Negative (Negative) Ur Leukocyte Esterase Negative (Negative) Urine WBC (Auto) 1-5 (0-5) /hpf Urine RBC (Auto) 0-4 (0-4) /hpf U Hyaline Cast (Auto) 0 (0-5) /lpf U Epithel Cells (Auto) 0-5 (0-5) /lpf Urine Bacteria (Auto) Negative (Negative) Urine Opiates Screen Neg (Neg) Ur Methadone, Qual Neg (Neg) Urine Barbiturates Neg (Neg) Ur Phencyclidine (PCP) Neg (Neg) U Amphetamin/Meth Scrn Neg (Neg) Urine MDEA MDMA (Ecstasy) Screen Pos H (Neg) MDMA Urine MDMA U Benzodiazepines Scrn Neg (Neg) Ur Cocaine Metabolite Neg (Neg) U Marijuana (THC) Screen Neg (Neg) SARS-CoV-2 (PCR) (Negative) Influenza Type A (PCR) (Neg) Influenza Type B (PCR) (Neg) RSV (RT-PCR) (Neg) 10/23/21 10/23/21 10/23/21 Range/Units 20:07 20:05 20:05 WBC (4.8-10.8) K/uL RBC (4.7-6.1) M/uL Hgb (14.0-18.0) g/dL Hct (42-52) % MCV (80-100) fL MCH (25-34) pg MCHC (32-36) g/dL RDW Std Deviation (36.4-46.3) fL RDW Coeff of Hillary (11.5-14.5) % Plt Count (130-400) K/uL MPV (7.4-10.4) fL Immature Gran % (Auto) % Neut % (Auto) % Lymph % (Auto) % Hanson % (Auto) % Eos % (Auto) % Baso % (Auto) % Neut # (Auto) (1.4-6.5) K/uL Lymph # (Auto) (1.2-3.4) K/uL Hanson # (Auto) (0.11-0.59) K/uL Eos # (Auto) (0-0.5) K/uL Baso # (Auto) (0-0.2) K/uL Immature Gran # (Auto) (0.00-0.02) K/uL VBG pH VBG pCO2 VBG pO2 VBG HCO3 VBG O2 Saturation VBG Base Excess Barometric Pressure Sodium 137 (136-145) mmol/L Potassium (3.5-5.1) mmol/L Chloride 104 (98-107) mmol/L Carbon Dioxide 25 (21-32) mmol/L Anion Gap 8 (3-11) BUN 19 (6-23) mg/dl Creatinine 0.71 (0.6-1.4) mg/dl Est Cr Clr Drug Dosing Not Reportable Est GFR ( Amer) 116.5 ml/min Est GFR (Non-Af Amer) 100.6 ml/min BUN/Creatinine Ratio 26.8 H (10-20) Glucose 90 (70-99) mg/dl Calcium 8.7 (8.5-10.1) mg/dl Magnesium (1.7-2.4) mg/dl Total Bilirubin 0.5 (0.2-1.0) mg/dl AST (13-39) U/L ALT 18 (7-52) U/L Alkaline Phosphatase (34-104) U/L Troponin I < 0.03 (0-0.04) ng/ml B-Natriuretic Peptide 25 (0-100) pg/ml Total Protein 6.8 (6.0-8.3) gm/dl Albumin 3.5 (3.4-5.0) gm/dl Globulin 3.3 (2.5-4.0) gm/dl Albumin/Globulin Ratio 1.1 (0.9-2) Procalcitonin < 0.05 (0-0.5) ng/ml TSH (0.300-4.500) uIu/ml Urine Color Urine Appearance (Clear) Urine pH (4.5-7.5) Ur Specific Colony (1.000-1.030) Urine Protein (Negative) Urine Glucose (UA) (Negative) Urine Ketones (Negative) Urine Blood (Negative) Urine Nitrite (Negative) Urine Bilirubin (Negative) Urine Urobilinogen (Negative) Ur Leukocyte Esterase (Negative) Urine WBC (Auto) (0-5) /hpf Urine RBC (Auto) (0-4) /hpf U Hyaline Cast (Auto) (0-5) /lpf U Epithel Cells (Auto) (0-5) /lpf Urine Bacteria (Auto) (Negative) Urine Opiates Screen (Neg) Ur Methadone, Qual (Neg) Urine Barbiturates (Neg) Ur Phencyclidine (PCP) (Neg) U Amphetamin/Meth Scrn (Neg) Urine MDEA MDMA (Ecstasy) Screen (Neg) MDMA Urine MDMA U Benzodiazepines Scrn (Neg) Ur Cocaine Metabolite (Neg) U Marijuana (THC) Screen (Neg) SARS-CoV-2 (PCR) (Negative) Influenza Type A (PCR) (Neg) Influenza Type B (PCR) (Neg) RSV (RT-PCR) (Neg) 10/23/21 10/23/21 10/23/21 Range/Units 20:05 19:30 15:11 WBC 9.66 (4.8-10.8) K/uL RBC 4.25 L (4.7-6.1) M/uL Hgb 13.3 L (14.0-18.0) g/dL Hct 39.1 L (42-52) % MCV 92.0 (80-100) fL MCH 31.3 (25-34) pg MCHC 34.0 (32-36) g/dL RDW Std Deviation 47.7 H (36.4-46.3) fL RDW Coeff of Hillary 14.2 (11.5-14.5) % Plt Count 247 (130-400) K/uL MPV 9.7 (7.4-10.4) fL Immature Gran % (Auto) 0.4 % Neut % (Auto) 71.0 % Lymph % (Auto) 16.0 % Hanson % (Auto) 8.5 % Eos % (Auto) 3.8 % Baso % (Auto) 0.3 % Neut # (Auto) 6.85 H (1.4-6.5) K/uL Lymph # (Auto) 1.55 (1.2-3.4) K/uL Hanson # (Auto) 0.82 H (0.11-0.59) K/uL Eos # (Auto) 0.37 (0-0.5) K/uL Baso # (Auto) 0.03 (0-0.2) K/uL Immature Gran # (Auto) 0.04 H (0.00-0.02) K/uL VBG pH Cancelled VBG pCO2 Cancelled VBG pO2 Cancelled VBG HCO3 Cancelled VBG O2 Saturation Cancelled VBG Base Excess Cancelled Barometric Pressure Cancelled Sodium (136-145) mmol/L Potassium (3.5-5.1) mmol/L Chloride (98-107) mmol/L Carbon Dioxide (21-32) mmol/L Anion Gap (3-11) BUN (6-23) mg/dl Creatinine (0.6-1.4) mg/dl Est Cr Clr Drug Dosing Est GFR ( Amer) ml/min Est GFR (Non-Af Amer) ml/min BUN/Creatinine Ratio (10-20) Glucose (70-99) mg/dl Calcium (8.5-10.1) mg/dl Magnesium (1.7-2.4) mg/dl Total Bilirubin (0.2-1.0) mg/dl AST (13-39) U/L ALT (7-52) U/L Alkaline Phosphatase (34-104) U/L Troponin I (0-0.04) ng/ml B-Natriuretic Peptide (0-100) pg/ml Total Protein (6.0-8.3) gm/dl Albumin (3.4-5.0) gm/dl Globulin (2.5-4.0) gm/dl Albumin/Globulin Ratio (0.9-2) Procalcitonin (0-0.5) ng/ml TSH (0.300-4.500) uIu/ml Urine Color Urine Appearance (Clear) Urine pH (4.5-7.5) Ur Specific Colony (1.000-1.030) Urine Protein (Negative) Urine Glucose (UA) (Negative) Urine Ketones (Negative) Urine Blood (Negative) Urine Nitrite (Negative) Urine Bilirubin (Negative) Urine Urobilinogen (Negative) Ur Leukocyte Esterase (Negative) Urine WBC (Auto) (0-5) /hpf Urine RBC (Auto) (0-4) /hpf U Hyaline Cast (Auto) (0-5) /lpf U Epithel Cells (Auto) (0-5) /lpf Urine Bacteria (Auto) (Negative) Urine Opiates Screen (Neg) Ur Methadone, Qual (Neg) Urine Barbiturates (Neg) Ur Phencyclidine (PCP) (Neg) U Amphetamin/Meth Scrn (Neg) Urine MDEA MDMA (Ecstasy) Screen (Neg) MDMA Urine MDMA U Benzodiazepines Scrn (Neg) Ur Cocaine Metabolite (Neg) U Marijuana (THC) Screen (Neg) SARS-CoV-2 (PCR) NEGATIVE (Negative) Influenza Type A (PCR) Negative (Neg) Influenza Type B (PCR) Negative (Neg) RSV (RT-PCR) Negative (Neg) Medications Administered Current Inpatient Medications Acetaminophen (Acetaminophen 325 Mg Tab) 650 mg PO Q4H PRN PRN Reason: Pain or Fever Stop: 11/23/21 01:18 Albuterol (Albuterol Hfa 8 Gm Inhaler) 2 puffs INH Q4H PRN PRN Reason: SOB, wheeze Stop: 11/23/21 02:29 Bupropion HCl (Bupropion Sr 150 Mg Tabcr) 150 mg PO QAM MAURO Stop: 11/23/21 08:59 Last Admin: 10/24/21 09:06 Dose: 150 mg Documented by: Enoxaparin Sodium (Enoxaparin Inj 40 Mg/0.4 Ml Syr) 40 mg SQ Q24H MAURO Stop: 11/23/21 07:59 Last Admin: 10/24/21 09:06 Dose: 40 mg Documented by: Famotidine (Famotidine 20 Mg Tab) 20 mg PO DAILY MAURO Stop: 11/23/21 08:59 Last Admin: 10/24/21 09:06 Dose: 20 mg Documented by: Fluticasone/Vilanterol (Fluticasone/Vilanterol 200/25mcg 14 Puffs/Inhaler) 1 puffs INH DAILY [facility]; Protocol Stop: 11/23/21 09:59 Last Admin: 10/24/21 16:10 Dose: Not Given Documented by: Ampicillin Sodium/Sulbactam Sodium 1,500 mg/ Sodium Chloride 104 mls @ 200 mls/hr IV Q6H [facility]; Protocol Stop: 10/31/21 10:14 Last Infusion: 10/24/21 11:51 Dose: Infused Documented by: Montelukast Sodium (Montelukast Sodium 10 Mg Tablet) 10 mg PO DAILY MAURO Stop: 11/23/21 08:59 Last Admin: 10/24/21 09:06 Dose: 10 mg Documented by: Nitroglycerin (Nitroglycerin Sl 0.4 Mg/Tab Tab) 0.4 mg SL UD PRN PRN Reason: Chest Pain Stop: 11/23/21 01:18 Pantoprazole Sodium (Pantoprazole 40 Mg Tab) 40 mg PO BID MAURO Stop: 11/23/21 08:59 Last Admin: 10/24/21 09:06 Dose: 40 mg Documented by: Polyethylene Glycol (Polyethylene (Miralax) 17 Gm Pack) 17 gm PO DAILY PRN PRN Reason: Constipation Stop: 11/23/21 01:18 Tamsulosin HCl (Tamsulosin Hcl 0.4 Mg Cap) 0.4 mg PO Q12 MAURO Stop: 11/23/21 08:59 Last Admin: 10/24/21 09:06 Dose: 0.4 mg Documented by:
[2021-10-24] MEDS: ASCORBIC ACID 500 MG TAB PO SCH ×2 (18:11→21:25)
[2021-10-24] MEDS: NICOTINE 14 MG/24 HR PATCH TD SCH (18:11)
[2021-10-24] MEDS: FLUTICASONE PROPIONATE NA SPR 16 GM BTL NAE SCH (18:11)
[2021-10-24] MEDS: LORATADINE 10 MG TAB PO SCH (18:11)
[2021-10-24] MEDS: CALCIUM CARBONATE 1250MG TAB PO SCH (18:12)
[2021-10-24] MEDS: GABAPENTIN 300 MG CAP PO SCH (21:25)
[2021-10-25] MEDS: AMPICILLIN/SULBACTAM SOD 1,500 MG in 0.9 % SODIUM CHLORIDE 100 ML IV SCH (04:20)
[2021-10-25 06:40] LABS: Basophils # (auto) 0.02 K/uL (0-0.2); Basophils % (auto) 0.2 %; Eosinophils # (auto) 0.01 K/uL (0-0.5); Eosinophils % (auto) 0.1 %; Hematocrit (blood only) 42.8 % (42-52); Hemoglobin 14.3 g/dL (14.0-18.0); Immature Granulocytes # (auto) 0.04 K/uL (0.00-0.02); Immature Granulocytes % (auto) 0.5 %; Lymphocytes # (auto) 0.94 K/uL (1.2-3.4); Lymphocytes % (auto) 11.5 %; Mean Corpuscular Hgb Conc 33.4 g/dL (32-36); Mean Corpuscular Volume 92.8 fL (80-100); Mean Platelet Volume 9.9 fL (7.4-10.4); Monocytes # (auto) 0.52 K/uL (0.11-0.59); Monocytes % (auto) 6.4 %; Neutrophils # (auto) 6.64 K/uL (1.4-6.5); Neutrophils % (auto) 81.3 %; Platelet Count 301 K/uL (130-400); RDW Coefficient of Variation 14.2 % (11.5-14.5); RDW Standard Deviation 47.8 fL (36.4-46.3); Red Blood Count 4.61 M/uL (4.7-6.1); White Blood Count 8.17 K/uL (4.8-10.8)
[2021-10-25 07:08] LABS: Albumin Globulin Ratio 1.1 (0.9-2); Albumin Level 3.6 gm/dl (3.4-5.0); BUN Creatinine Ratio 22.2 (10-20); Bilirubin,Total 0.4 mg/dl (0.2-1.0); Calcium 8.7 mg/dl (8.5-10.1); Creatinine Clr Calc Pharmacy 128.5 ml/min; Est GFR (African American) 110.4 ml/min; Est GFR (Non-African American) 95.3 ml/min; Globulin 3.2 gm/dl (2.5-4.0); Potassium 3.7 mmol/L (3.5-5.1); Total Protein 6.8 gm/dl (6.0-8.3)
[2021-10-25] MEDS ORDERED: AMOXICILLIN/CLAVULANATE 875 MG TAB PO SCH (08:00)
[2021-10-25] MEDS: NICOTINE 14 MG/24 HR PATCH TD SCH (08:05)
[2021-10-25] MEDS: TAMSULOSIN HCL 0.4 MG CAP PO SCH (08:05)
[2021-10-25] MEDS: ASCORBIC ACID 500 MG TAB PO SCH (08:05)
[2021-10-25] MEDS: LORATADINE 10 MG TAB PO SCH (08:06)
[2021-10-25] MEDS: PANTOprazole 40 MG TAB PO SCH (08:06)
[2021-10-25] MEDS: GABAPENTIN 300 MG CAP PO SCH (08:06)
[2021-10-25] MEDS: FLUTICASONE/VILANTEROL 200/25MCG 14 PUFFS/INHALER INH SCH (08:06)
[2021-10-25] MEDS: FAMOTIDINE 20 MG TAB PO SCH (08:06)
[2021-10-25] MEDS: CALCIUM CARBONATE 1250MG TAB PO SCH (08:06)
[2021-10-25] MEDS: buPROPion SR 150 MG TABCR PO SCH (08:06)
[2021-10-25] MEDS: ENOXAPARIN INJ 40 MG/0.4 ML SYR SQ SCH (08:07)
[2021-10-25] MEDS: FLUTICASONE PROPIONATE NA SPR 16 GM BTL NAE SCH (08:07)
[2021-10-25] MEDS: MONTELUKAST SODIUM 10 MG TABLET PO SCH (08:08)
[2021-10-25] MEDS ORDERED: PNEUMOCOCCAL Polysaccharide Vaccine 25mcg/0.5mL vial/Syr IM ONE (09:00)
[2021-10-25] MEDS ORDERED: predniSONE 50 MG TAB PO SCH (09:00)
[2021-10-25] MEDS ORDERED: MoRPHine SULFATE 2 MG/ML CARP IV PRN (09:55)
--- NOTE | 2021-10-25 11:58 | Discharge Summary ---
Date of Service October 25, 2021 Admission HPI Per Admitting Provider 60 y/o M w/ PMHx of TBI and resultant dysarthria, dysphagia, and recurrent aspiration concerns who [facility] for 1.5 wk of severe cough, 2 days of chest pain, and 2-3 days of dyspnea. He had declined inhaler treatment because did not understand why it was needed. Patient had cxr this morning that was read as left infra hilar patchy density suggestive of pneumonia. Flaquito Buchanan called on-call [facility] PCP who recommended ED eval. Per nurse, daughter was at bedside earlier and did not have concerns about mentation even though patient was similarly somnolent. Patient has been somnolent, intermittently waking up w/ simple responses such as asking for blanket. History was limited by patient's somnolence. Patient denies all complaints, but reliability of this is questionable. No family available at bedside. Called [facility] Buchanan and spoke to nurse who provided the information above. ED course: Vanc, cefepime, azithro, 500mL NSS bolus, albuterol. No leukocytosis or fever. Admission Exam Per Admitting Provider General: Knows he is at [facility]. NAD. Somnolent. Difficult to arouse. Woke up briefly enough to nod/shake head and state he was at [facility]. HEENT: Atraumatic, normocephalic. PERRL. Pupils are small, not blown. Possible JVD on left. Pulm: CTAB. -wheezes, -rales, -rhonchi. No respiratory distress. Cardiac: RRR, -mrg. Radial pulses intact and symmetrical. 3+ BLE, wearing compression stockings Abdominal: Nontender, nondistended, soft. Neuro: Normal and symmetric dormitory keeper strength. Principal Diagnosis Dyspnea secondary to COPD exacerbation versus aspiration pneumonia complicated by past medical history of TBI, chronic smoking status, and chronic pulmonary aspiration Discharge Exam General: Lying in bed no acute distress HEENT: Normocephalic atraumatic, Cardiac: Regular rate and rhythm Patient feeling emergency room Purchasing Manager, normal S1, normal S2, 2+ pedal edema, negative calf tenderness Respiratory: Positive wheezes, positive rhonchi, no significant increased work of breathing GI: Soft nontender nondistended Neuro: Alert and oriented x4 Psych: Calm and cooperative with interview Discharge Data Allergies Allergy/AdvReac Type Severity Reaction Status Date / Time mupirocin [From Bactroban] Allergy Verified 09/18/21 08:53 Consultations 10/23/21 21:43 ED Decision to Admit Stat Ordered Studies 10/23/21 23:26 CT head/brain wo con Urgent Hospital Course (1) Dyspnea: 60 y/o M w/ PMHx of TBI and resultant chronic aspiration pneumonia who presents from [facility] for 2-3 days of dyspnea. His admission is complicated by somnolence which appears to be different from baseline. #Dyspnea secondary to COPD exacerbation versus aspiration pneumonia 1-1/2-week history of progressively worsening dyspnea and cough with acute worsening 2 to 3 days ago. Questionable associated chest pain.Chest x-ray consistent with mild bibasilar opacities suggestive of atelectasis versus pneumonitis. Given his smoking history, questionable compliance outpatient medication regimen suspect COPD exacerbation however he is known silent aspiration. Therefore will provide coverage with Unasyn and transition to p.o. Augmentin. -Cultures negative -Unasyn plan to convert to p.o. Augmentin tomorrow -Incentive spirometer, flutter valve, chest PT -Continue home inhalers, allergy medication, and intranasal corticosteroids. -Pulse steroids 60 mg daily iv solumedrol q day - converted to P/O prednisone on discharge #Chest pain Reported per EMS and patient on admission has not had any others significant chest pain, EKG negative, troponins negative. Suspect related to underlying cough #Smoking history Patient with a longstanding smoking history and current active smoker. Suspect that this is the underlying etiology of his current presentation. Encouraged the patient to stop smoking, #TBI (traumatic brain injury) Old injury. Resultant dysphagia and expressive aphasia. Aspiration precautions -Patient evaluated by speech therapy. Has known chronic silent aspiration. #BPH (benign prostatic hyperplasia) - Continue home regimen #Gastroesophageal reflux - Continue home regimen FEN/GI: low Na diet. ppx: lovenox sq code: full dispo: Med/ Surg Dispo [facility] Elias Li MD PGY 3, FCM This chart was completed utilizing [employer] voice recognition software. Grammatical errors, random word insertions, pronoun errors, and in complete sentences are an occasional consequence of the system. Any questions or concerns about the content, text, or information contained within the body of this dictation should be addressed directly to the physician for clarification. (2) TBI (traumatic brain injury): (3) Expressive aphasia: (4) BPH (benign prostatic hyperplasia): (5) Pulmonary fibrosis: (6) Gastroesophageal reflux: (7) Chronic pulmonary aspiration: (8) Engages in vaping: (9) Impulsive personality disorder: Total Time Total Time Spent Total Time Spent (In Minutes): 46 Discharge Plan Discharge Items Patient Disposition: Personal Group Home Reason For Visit: DYSPNEA Discharge Diagnosis: Dyspnea secondary to COPD exacerbation versus aspiration pneumonia complicated by past medical history of TBI, chronic smoking status, and chronic pulmonary aspiration Activity: Resume your previous activity Non-emergency contact: Primary Care Provider Call non-emergency contact if: your symptoms worsen and your temperature is above 101.5 Follow-up/Referrals: Aziza Coe MD [Primary Care Provider] - Diet: Heart Healthy Addtl Attending Provider Instructions: Care instructions: You were admitted to [facility] for treatment of COPD exacerbation and aspiration pneumonia. While hospitalized you were provided with antibiotics and steroids leading to improvement in your symptoms. Ultimately your current presentation is likely related to your history of recurrent silent aspiration and current active smoking status. We recommend that you discuss both these chronic medical issues with your primary care heri renee. If you do not make the necessary lifestyle changes to address these issues is important to have a plan in place as you will likely develop recurrent bouts of lung infections. On discharge we recommend that you complete your course of Augmentin and oral steroids. Medications -Augmentin 875 twice daily x8 days -Prednisone 50 mg x 5 days A discharge summary will be sent to your primary care physician to ensure continuity of care. Please bring this discharge summary with you to your next office appointment so that your provider can review it at that time. Follow-up appointments: - Keep all your follow-up appointments as already scheduled. If you cannot make an appointment, notify your provider. - Please call to request a follow-up appointment with your primary care physician within one week of discharge. Please let us know if you are unable to obtain an appointment Medications: - Your medication list has been reviewed and reconciled upon discharge to ensure accuracy and continuity of care. - You are provided with a list of all your current medications at this time. Please review this list closely and make note of any changes. - Please take all of your medications exactly as prescribed. - Tell your primary care provider if you cannot afford your medications. - Call your primary care provider if you are having any side effects or any other problems. - Call your primary care provider before taking any over the counter medications or supplements, including herbals and vitamins, because some of these may interact with your current medications and/or make your symptoms worse. Symptoms: Please call your primary care provider for symptoms including, but not limited to: fevers (temperatures greater than 100.4), chills, intractable nausea or vomiting, diarrhea, rash, shortness of breath, bleeding, pain, or if you experience any worsening of the symptoms that brought you to the hospital. For EMERGENCY and VERY SERIOUS health-related issues, such as chest pain, shortness of breath, or sudden onset of the symptoms that brought you to the hospital, you may need to call 911 or go directly to the Emergency Room It has been our privilege to take care of you during your hospital stay. And Above All Else Feel Better! Best Wishes, Elias Li MD PGY2 Resident, Family & Community Medicine [facility] - [address], [address] MC: [place] [address] Pending Studies at Discharge: No Stand-Alone Forms: My [facility], Smoking Cessation Skilled Items Patient informed of condition?: Yes DNR: No Discharge Level of Care: Other Communicable Disease: No Discharge Prognosis: Improving Lines: None Urinary Catheter: No Medications and DC Order Prescriptions: New prednisone 50 mg Tablet 50 mg PO DAILY 5 Days Qty: 5 RF: 0 albuterol sulfate [Ventolin HFA] 90 mcg/actuation Hfa Aerosol Inhaler 2 puff inhalation Q4H PRN (Reason: bronchospasm) 30 Days Qty: 8.5 RF: 0 amoxicillin-pot clavulanate [Augmentin] 875-125 mg Tablet 1 tab PO BIDM 8 Days Qty: 16 RF: 0 Breo Ellipta 200-25 mcg/dose Blister With Device 1 ea inhalation DAILY 30 Days Qty: 60 RF: 0 Continued montelukast [Singulair] 10 mg tablet 10 mg PO DAILY RF: 0 sodium chloride [Saline Mist] 0.65 % aerosol,spray 1 spray intranasal BID PRN (Reason: ..) RF: 0 (DME) Wheelchair (Manual) Device See Rx Instructions .ROUTE .MEDSUPPLY Qty: 1 RF: 0 ascorbate calcium (vitamin C) 500 mg tablet 500 mg PO QID Qty: 120 RF: 1 (DME) T.E.D. Anti-Embolism Stocking Misc See Rx Instructions .ROUTE .MEDSUPPLY Qty: 12 RF: 0 pantoprazole 40 mg tablet,delayed release (DR/EC) 40 mg PO BID Qty: 60 RF: 11 fluticasone propionate [Allergy Relief (fluticasone)] 50 mcg/actuation spray,suspension 2 spray INTNAS QAM Qty: 16 RF: 5 gabapentin 300 mg capsule 300 mg PO BID Qty: 60 RF: 3 alum-mag hydroxide-simeth [Mylanta Maximum Strength] 400-400-40 mg/5 mL suspension 5 ml PO QID PRN (Reason: indigestion) Qty: 30 RF: 6 guaifenesin [Mucinex] 600 mg tablet extended release 12hr 600 mg PO Q12H PRN (Reason: congestion) Qty: 60 RF: 5 loratadine 10 mg tablet 10 mg PO DAILY Qty: 30 RF: 0 calcium carbonate [Oyster Shell Calcium] 500 mg calcium (1,250 mg) tablet 500 mg PO QAM RF: 0 bupropion HCl [Wellbutrin SR] 150 mg tablet sustained-release 12 hr 150 mg PO QAM Qty: 90 RF: 1 famotidine [Acid Manager Surgery (famotidine)] 20 mg tablet 20 mg PO DAILY Qty: 90 RF: 1 tamsulosin [Flomax] 0.4 mg capsule 0.4 mg PO Q12 RF: 0 Discharge Orders: Discharge Order (Routine); Ordered 10/25/21 Ordered By: Elias Delgado/Other Patient Handouts: Shortness of Breath Coping Admission Data Admit Date/Time: 10/23/21 23:45 Attending Provider: Vera Puentes Admit Provider: Ross Flores Primary Care Provider: Aziza Coe Other Providers: Edith Li Other Interventions: Discharge Summary Assessment (RN) Last Done: 10/25/21 16:09 Supervising Physician Co-Signing Physician Notes Resident Physician Supervision Note: I independently interviewed and examined the patient and verified the araujo history and physical, reviewed labs and image studies and agree with resident Dr. Li findings and care plan. Resident Activity Tracking Resident Involvement: Resident Care Provided Care Provided: Adult [facility] Medicine
[2021-10-27 19:06] LABS: MDA negative; MDEA negative; MDMA (Ecstasy) Urine, Confirm negative
== END 2021-10-25 16:23 | disposition home or self-care (01) ==
LOC: EDINP 17:47 → ED 17:47 → SUATTDRO 23:45 → EDINP 10-24 01:20 → 2N 10-24 22:49